=== PATIENT | male | born 2000 | race Caucasian/White ===

== ENCOUNTER 2020-11-24 14:38 | Inpatient (IN) | payer BC, SELFPAY ==
[2020-11-24 14:40] VITALS: BP 142/95; PULSE 78; RESP 16; TEMP 36.7; O2SAT 100; BMI 21.1
[2020-11-24 15:01] VITALS: RESP 18
--- NOTE | 2020-11-24 15:10 | ED_ITS ---
HPI - Psych General: Chief Complaint: Psychiatric Symptoms Stated Complaint: 96 Time Seen by Provider: 11/24/20 14:53 Source: patient and police Mode of arrival: other (police) Limitations: no limitations History of Present Illness: HPI Narrative: Patient is a 20-year-old male who was brought in by law enforcement on a 96-hour hold that has been court ordered for suicidal ideation. The patient denies any complaints at this time, he states he does not know why he was brought here. He said he was suicidal about a week ago but is no longer suicidal. According to the affidavit/96 hour order the patient is [id number], and suicidal and is a risk to himself and others. Review of Systems General: Reports: 10 or more systems reviewed and unremarkable except in HPI and below Const: Denies: fever(s), chills or body aches Eyes: Denies: change in vision or blurry vision ENMT: Denies: throat pain, enlarged tonsils, odynophagia, hoarseness, mouth pain or swelling of lips/tongue Card: Denies: palpitations, irregular heart rhythm, edema or swelling of feet/ankles Resp: Denies: dyspnea, productive cough or non-productive cough GI: Denies: abdominal pain, nausea or vomiting : Denies: flank pain, dysuria, urinary frequency, urinary urgency or urinary hesitancy Musc: Denies: neck pain, back pain or extremity swelling Skin/Breast: Denies: rash, pruritus or erythema Neuro: Denies: headache(s), numbness in extremities or weakness in extremities Endo: Denies: polyuria, polydipsia or tired all the time Physical Exam Const: COMMON NORMALS: no acute distress, average body habitus, patient oriented x3, no limitations, healthy appearing, alert and well nourished HENMT: COMMON NORMALS: normocephalic, atraumatic and moist oral mucous membranes HEAD & SCALP: normocephalic and atraumatic Neck/C-Spine: COMMON NORMALS: no meningeal signs and no JVD Resp: COMMON NORMALS: normal respiratory effort, No retractions, No use of accessory muscles, clear to auscultation bilaterally and percussion normal AUSCULTATION: clear to auscultation bilaterally PERCUSSION: percussion normal Cardio: COMMON NORMALS: no JVD, regular rate, regular rhythm, S1 normal heart sound present, S2 normal heart sound present, No gallops present (Cardio), No clicks present (Cardio), No murmurs present (Cardio), No rub (Cardio) and Peripheral pulses 2+ throughout RATE: regular rate RHYTHM: regular rhythm HEART SOUNDS: S1 normal heart sound present and S2 normal heart sound present PERIPHERAL PULSES: Peripheral pulses 2+ throughout GI: COMMON NORMALS: Normal to inspection, nondistended, normoactive bowel sounds present, Soft to palpation, non-tender, No hepatosplenomegaly present, no masses and no bruits PALPATION: Yes Soft to palpation and Yes No hepatosplenomegaly present : COMMON NORMALS: Yes no CVA tenderness BLADDER/KIDNEY EXAM: Yes no CVA tenderness Back/Pelvis: COMMON NORMALS: no CVA tenderness Extremity: COMMON NORMALS: normal to inspection, full ROM, capillary refill normal, no calf tenderness and no pedal edema Neuro: COMMON NORMALS: patient oriented x3 SENSORIUM/ORIENTATION: Yes alert MENINGEAL SIGNS: Yes no meningeal signs Psych: COMMON NORMALS: mental status grossly normal, Normal thought process present, cooperative, normal affect, speech normal, denies hallucinations, denies homicidal ideation and denies suicidal ideation SPEECH: Yes normal speech THOUGHT PROCESS: Normal thought process present Skin: COMMON NORMALS: no rashes or lesions noted, no wounds, turgor normal, no jaundice, no petechiae and no mottling GENERAL SKIN EXAM: no rashes or lesions noted and turgor normal MDM - Psych MDM Narrative: Medical decision making narrative: 20-year-old male patient who was brought in from detention on a 96-hour hold. He apparently has been having behavioral issues including suicidal ideation. He denies suicidal ideation here in the emergency department, and evaluation here is unremarkable. He is medic ally cleared and is admitted to the neuropsychiatric unit since he already has a 96-hour hold order from the court. Medical Records: Attestation: I reviewed the patient's medical records. Lab Data: Attestation: I reviewed the patient's lab results. Labs: Lab Results 11/24/20 11/24/20 11/24/20 Range/Units 14:55 14:55 15:10 WBC 5.7 (4.0-10.0) 10^3/ uL RBC 5.16 (4.1-5.3) 10^6/u L Hgb 15.0 (11.7-16.6) g/dL Hct 44.8 (42.0-52.0) % MCV 86.8 (80-94) fL MCH 29.1 (28.0-34.0) pg MCHC 33.5 (30.0-36.0) g/dL RDW 11.7 L (12.1-15.1) % Plt Count 249 (130-400) 10^3/c mm MPV 8.7 (7.4-10.4) fL Neut % (Auto) 67.6 % Lymph % (Auto) 25.5 % [place] % (Auto) 4.4 % Eos % (Auto) 1.4 % Baso % (Auto) 0.7 % Neut # (Auto) 3.85 (1.8-7.7) 10^3/u L Lymph # (Auto) 1.5 (0.8-4.8) 10^3/u L [place] # (Auto) 0.3 (0.2-0.9) 10^3/u L Eos # (Auto) 0.1 (0.0-0.8) 10^3/u L Baso # (Auto) 0.0 (0.0-0.1) 10^3/u L Nucleated RBC % (a uto) 0 % Nucleated RBCs # 0.0 /100WBC Sodium (136-145) mmol/L Potassium (3.5-5.1) mmol/L Chloride (98-107) mmol/L Carbon Dioxide (22-29) mmol/L Anion Gap (5-19) BUN (6-20) mg/dL Creatinine (0.7-1.2) mg/dL GFR Calculation (90-130) mL/min Glucose (65-115) mg/dL Calculated Osmolal ity (285-295) mOsm/k g Calcium (8.5-10.5) mg/dL Total Bilirubin (0.15-1.2) mg/dL AST (0-40) U/L ALT (0-41) U/L Alkaline Phosphata se (40-130) IU/L Total Protein (6.6-8.7) g/dL Albumin (3.5-5.2) g/dL Globulin (1.3-4.6) g/dL Urine Color Yellow (Yellow) Urine Appearance Hazy A (CLEAR) Urine pH 8 H (5-7) Ur Specific Gravit y 1.015 (1.005-1.030) Urine Protein Neg (Negative) Urine Glucose (UA) Norm (Normal) Urine Ketones Negative (Negative) Urine Blood Neg (Negative) Urine Nitrate Negative (Negative) Urine Bilirubin Neg (Negative) Prot Sulfosalicyli c Acd Negative (Negative) Urine Urobilinogen Norm (Negative) mg/dL Ur Leukocyte Henrietta ase Negative (Negative) Urine RBC 0-4 H (0-2) /hpf Urine WBC None (0-5) /hpf Ur Squamous Epith Cells 0-4 H (0-5) /hpf Amorphous Sediment 4+ /hpf Urine Bacteria 1+ H (NONE) /hpf Salicylates (3-10) mg/dL Urine Opiates Scre en Negative (Negative) ng/mL Acetaminophen (10-30) ug/mL Ur Barbiturates Sc reen Negative (Negative) ng/mL Ur Phencyclidine S crn Negative (Negative) ng/mL Ur Amphetamines Sc reen Negative (Negative) ng/mL U Benzodiazepines Scrn Negative (Negative) ng/mL Urine Cocaine Scre en Negative (Negative) ng/mL U Marijuana (THC) Screen Positive H (Negative) ng/mL Ethyl Alcohol (0-10) mg/dL 11/24/20 Range/Units 15:10 WBC (4.0-10.0) 10^3/ uL RBC (4.1-5.3) 10^6/u L Hgb (11.7-16.6) g/dL Hct (42.0-52.0) % MCV (80-94) fL MCH (28.0-34.0) pg MCHC (30.0-36.0) g/dL RDW (12.1-15.1) % Plt Count (130-400) 10^3/c mm MPV (7.4-10.4) fL Neut % (Auto) % Lymph % (Auto) % [place] % (Auto) % Eos % (Auto) % Baso % (Auto) % Neut # (Auto) (1.8-7.7) 10^3/u L Lymph # (Auto) (0.8-4.8) 10^3/u L [place] # (Auto) (0.2-0.9) 10^3/u L Eos # (Auto) (0.0-0.8) 10^3/u L Baso # (Auto) (0.0-0.1) 10^3/u L Nucleated RBC % (a uto) % Nucleated RBCs # /100WBC Sodium 138 (136-145) mmol/L Potassium 4.2 (3.5-5.1) mmol/L Chloride 101 (98-107) mmol/L Carbon Dioxide 30 H (22-29) mmol/L Anion Gap 11.2 (5-19) BUN 11 (6-20) mg/dL Creatinine 1.0 (0.7-1.2) mg/dL GFR Calculation 94.3 (90-130) mL/min Glucose 99 (65-115) mg/dL Calculated Osmolal ity 285 (285-295) mOsm/k g Calcium 9.6 (8.5-10.5) mg/dL Total Bilirubin 0.2 (0.15-1.2) mg/dL AST 14 (0-40) U/L ALT 16 (0-41) U/L Alkaline Phosphata se 82 (40-130) IU/L Total Protein 7.2 (6.6-8.7) g/dL Albumin 4.5 (3.5-5.2) g/dL Globulin 2.7 (1.3-4.6) g/dL Urine Color (Yellow) Urine Appearance (CLEAR) Urine pH (5-7) Ur Specific Gravit y (1.005-1.030) Urine Protein (Negative) Urine Glucose (UA) (Normal) Urine Ketones (Negative) Urine Blood (Negative) Urine Nitrate (Negative) Urine Bilirubin (Negative) Prot Sulfosalicyli c Acd (Negative) Urine Urobilinogen (Negative) mg/dL Ur Leukocyte Henrietta ase (Negative) Urine RBC (0-2) /hpf Urine WBC (0-5) /hpf Ur Squamous Epith Cells (0-5) /hpf Amorphous Sediment /hpf Urine Bacteria (NONE) /hpf Salicylates < 0.3 L (3-10) mg/dL Urine Opiates Scre en (Negative) ng/mL Acetaminophen < 5.0 L (10-30) ug/mL Ur Barbiturates Sc reen (Negative) ng/mL Ur Phencyclidine S crn (Negative) ng/mL Ur Amphetamines Sc reen (Negative) ng/mL U Benzodiazepines Scrn (Negative) ng/mL Urine Cocaine Scre en (Negative) ng/mL U Marijuana (THC) Screen (Negative) ng/mL Ethyl Alcohol < 10 (0-10) mg/dL Discharge Plan Discharge Patient Disposition: Admitted As Inpatient Admit Provider: Cha Mike Clinical Impression: Suicidal ideation Condition: Stable Coding Level of Care Code ED Manager Of Selection And Assessment for Cait Damon
[2020-11-24 15:16] LABS: Basophils % 0.7 %; Eosinophils # 0.1 10^3/uL (0.0-0.8); Eosinophils % 1.4 %; Hematocrit 44.8 % (42.0-52.0); Lymphocytes # 1.5 10^3/uL (0.8-4.8); Lymphocytes % 25.5 %; Mean Corpuscular HGB Conc 33.5 g/dL (30.0-36.0); Mean Corpuscular Hemoglobin 29.1 pg (28.0-34.0); Mean Corpuscular Volume 86.8 fL (80-94); Mean Platelet Volume 8.7 fL (7.4-10.4); Monocytes # 0.3 10^3/uL (0.2-0.9); Monocytes % 4.4 %; Neutrophils # 3.85 10^3/uL (1.8-7.7); Neutrophils % 67.6 %; Nucleated Red Blood Cells % 0 %; Platelet Count 249 10^3/cmm (130-400); Red Blood Count 5.16 10^6/uL (4.1-5.3); Red Cell Distribution Width 11.7 % (12.1-15.1); White Blood Count 5.7 10^3/uL (4.0-10.0)
[2020-11-24 15:38] LABS: Add Urine Microscopic? YES; Bilirubin Urine Neg (Negative); Blood Urine Neg (Negative); Glucose Urine UA Norm (Normal); Ketones Urine Negative (Negative); Leukocyte Esterase Urine Negative (Negative); Nitrate Urine Negative (Negative); Protein Urine Neg (Negative); Specific Gravity, Urine 1.015 (1.005-1.030); Sulfosalicylic Acid Urine Negative (Negative); Urine Appearance Hazy (CLEAR); Urine Color Yellow (Yellow); Urobilinogen Urine Norm (Negative); pH Urine 8 (5-7)
[2020-11-24 15:43] LABS: Alanine Aminotransferase 16 U/L (0-41); Albumin Level 4.5 g/dL (3.5-5.2); Alkaline Phosphatase 82 IU/L (40-130); Anion Gap 11.2 (5-19); Aspartate Amino Transferase 14 U/L (0-40); Blood Urea Nitrogen 11 mg/dL (6-20); Calcium 9.6 mg/dL (8.5-10.5); Carbon Dioxide 30 mmol/L (22-29); Chloride 101 mmol/L (98-107); Globulin 2.7 g/dL (1.3-4.6); Glomerular Filtration Rate 94.3 mL/min (90-130); Glucose 99 mg/dL (65-115); Osmolality Calculated 285 mOsm/kg (285-295); Potassium 4.2 mmol/L (3.5-5.1); Sodium 138 mmol/L (136-145); Total Bilirubin 0.2 mg/dL (0.15-1.2); Total Protein 7.2 g/dL (6.6-8.7)
[2020-11-24 15:47] LABS: Add Urine Culture? No; Amorphous Sediment Urine 4+ /hpf; Bacteria Urine 1+ /hpf; RBC Urine 0-4 /hpf (0-2); Squamous Epithelial Cell Urine 0-4 /hpf (0-5)
[2020-11-24 15:49] LABS: Acetaminophen < 5.0 ug/mL (10-30); Alcohol Level < 10 mg/dL (0-10); Salicylate < 0.3 mg/dL (3-10)
[2020-11-24 16:11] LABS: Amphetamines Screen Urine Negative (Negative); Barbiturates Screen Urine Negative (Negative); Benzodiazepines Screen Urine Negative (Negative); Cocaine Screen Urine Negative (Negative); Opiate Screen Urine Negative (Negative); PCP Screen Urine Negative (Negative); THC Screen Urine Positive (Negative)
[2020-11-24 17:11] VITALS: BP 132/88; PULSE 78; RESP 18; O2SAT 100
[2020-11-24 17:46] VITALS: BP 132/88; PULSE 78; RESP 18; O2SAT 100
[2020-11-24 18:05] VITALS: BP 135/87; PULSE 80; RESP 18; TEMP 37.1; O2SAT 99
[2020-11-24] MEDS: nicotine 2 mg Gum BUCCAL (19:22)
[2020-11-24 19:56] VITALS: BP 141/84; PULSE 96; RESP 18; TEMP 36.8; O2SAT 96
[2020-11-25] MEDS: hyDROXYzine 25 mg Capsule 50 MG PO (00:36)
[2020-11-25] MEDS: trazodone 50 mg Tablet PO (00:37)
[2020-11-25 06:00] VITALS: BP 81/41; PULSE 52; RESP 15; TEMP 36.4; O2SAT 98
--- NOTE | 2020-11-25 12:52 | P.HP_ITS ---
Providers/Chief Complaint Admitting Physician: Cha Mike DO Chief Complaint: 96 HPI NPU History of Present Illness Cresencio Barlow is a 20 year old male presented to the emergency department by police after being released from [facility], per chart review, patient had been banging his head against the wall making threats of harming himself although at the time of emergency department evaluation was denying any suicidal ideation. Patient is currently denying any suicidal ideation and denying any psychiatric symptoms although he sits in front of the interviewer smiling inappropriately and occasionally laughing inappropriately and suddenly stopped answering questions when asked about past psychiatric treatments stating, I know which are trying to do to me. Patient is a difficult historian secondary to not providing any additional information after asked about past treatment for psych issues. Patient currently denies any psychotic symptoms, denies any auditory or visual destinations, denies any delusions. Patient states that he is happy, and denies any current depressive symptoms, denies any past or recent sustained low mood states. Denies any periods of irritability or anger. Denies any past or recent manic or hypomanic episodes. COLLATERAL: Jeannine Barlow, patient's mother, states that the patient lives with her and her on occasion but often times will set off on foot, sometimes without close erratically. She also reports that he will intermittently demonstrate bizarre behavior and sometimes go off the handle and destroy things in the house without provocation. She states that she is never seen him appear to be responding to internal stimuli but does report that he occasionally acts in a bizarre behavior that seems like something is going on inside of his head. She reports that sometimes that he has burst out into tears when he is drawn something on a piece of paper stating that he does not understand why no one understands that he is just drawn something that has solved all of the world's problems. He has also reportedly gone out in the middle of the night and chopped down their mailbox states stating that it serves no purpose. Patient's mother reports ongoing concerns about acute safety given that he had stated before [place] that he did not plan on being alive past [place]. Review of Systems General: Reports: 10 or more systems reviewed and unremarkable except in HPI and below Meds NPU Home Medications Medication Instructions Recorded Confirmed Last Taken Type No Known Home Medications 11/24/20 11/24/20 Unknown History Allergies Allergy/AdvReac Type Severity Reaction Status Date / Time No Known Allergies Allergy Verified 11/24/20 14:44 [facility] NPU Other Psychiatric History: Other Psychiatric History: Patient refused to provide information although patient's mother states that he had ended up at a psychiatric facility around the age of 14 or 15 when he ran away from home and was treated there for several days but never continued the medication and reports that in the past when he has been prescribed medication he has either abused it or sold it to other people. Patient's mother denies denies any known history of suicide attempt Mental Status Exam MSE Comments: Patient responds and somewhat bizarre manner to request for interview, smiles inappropriately and occasionally laughs and appropriately during interview stating that nothing is wrong, good eye contact although averts gaze and no longer looks at interviewer after he is asked about past psychiatric treatment Psychomotor activity is neither increased nor decreased, no agitation Speech is normal rate and volume, spontaneous, clear articulation, not pressured I feel great, full range, laughs and smiles inappropriately at times during the interview, not labile Alert and oriented to person, place, time Intellectual functioning appears to be average based on vocabulary, interview Memory and concentration appear to be fair at best based on interview Thought process, occasional pauses that appear to be thought blocking, linear but brief, no flight of ideas, no looseness of associations Thought content, no stated delusions, does not appear to be attending to any internal stimuli, no suicidal or homicidal ideation Insight and judgment appear to be limited based on patient's lack of awareness of events leading to his hospitalization Vitals/I&O/Wt Last Vital Signs Temp 97.6 F 11/25/20 06:00 Pulse 52 L 11/25/20 06:00 Resp 15 11/25/20 06:00 BP 81/41 11/25/20 06:00 Pulse Ox 98 11/25/20 06:00 Weight last 48 hrs Weight 72.575 kg Physical Exam Narrative: EXAM NARRATIVE: Emergency department physical examination was reviewed as part of this evaluation. Data NPU : 11/24/20 15:10 11/24/20 15:10 A&P Assessment and plan (1) Suicidal ideation: Status: Acute (2) Psychotic disorder: Status: Acute Additional A&P Information Patient presenting under unusual circumstances on 96-hour hold initiated by parents who are concerned about their son's safety with longstanding erratic, bizarre behavior with no psychotropic medication, recently taken to [facility] where he had been banging his head against the wall threatening suicide. Patient has past history of polysubstance abuse but has also demonstrated over a long period of time bizarre behaviors in the absence of substance use. Patient would benefit from ongoing observation for suicidal ideation and bizarre behavior. INVOLUNTARY, 96-hour hold ADMIT to inpatient psychiatry Continue observation while reassessing for psychiatric medication Continue as needed medication as necessary for any behavioral disturbances not responding to behavioral redirection Encourage patient to participate in unit activities to include group sessions and unit milieu Involuntary Hold Information 96 Hour Hold: 96 Hour Involuntary Admission: Yes 96 Hour Hold Ending Date: 11/30/20 96 Hour Hold Ending Time: 14:38 Attestations NPU Medical Necessity Statement*: Patient requires psychiatric hospitalization for observation for ongoing bizarre behavior, concerns about recent suicidal statements and behaviors as well as coordinating for safe discharge including post discharge psychiatric care. Anticipate hospital stay to exceed 2 midnights Time Spent in Patient Care: Greater than 35 minutes (>than 50% of time spent in counselling and/or direct pt care on unit) . Coding Level of Care Code Acute Candle Extrusion Machine Operator for Cait Damon Diagnoses Suicidal ideation R45.851 Psychotic disorder F29
[2020-11-25 14:00] VITALS: BP 118/71; PULSE 83; RESP 18; TEMP 35.9; O2SAT 96
--- NOTE | 2020-11-25 14:39 | PC.NURSE ---
contact info Margie ([facility] – [place]) [phone]
[2020-11-25] MEDS: nicotine 2 mg Gum BUCCAL (21:03)
[2020-11-25 21:04] VITALS: BP 110/63; PULSE 86; RESP 18; TEMP 36.8; O2SAT 100
--- NOTE | 2020-11-26 00:58 | PC.NURSE ---
PM assessment Pt denies AH/VH, Denies SI/HI, Denies pain, pt is watching television in the dayroom. Pt heart/lung sounds are WNL, v/s are normal. Pt is bored, often skipping up and down the hallway, pt acts much younger than his age, seems to be full of energy, pt is cooperative with staff. 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 Pt refuses to take meds, states I don't like them to take away my energy, I have an 8-pack, see? he said as he lifted his shirt
[2020-11-26 06:00] VITALS: BP 103/57; PULSE 71; RESP 18; TEMP 36.8; O2SAT 100
[2020-11-26 14:00] VITALS: BP 127/78; PULSE 85; RESP 20; TEMP 36.9; O2SAT 98
--- NOTE | 2020-11-26 16:57 | PM.NPN ---
Subjective NPU Subjective: Interval history: Cresencio presents today clearly psychotic and having inappropriate laughter and seeming to suggest that he has special abilities. He discussed having an IQ of 150 and knowing what psychiatrist to do. Speaking with odd expressions about the here and now. We discussed his previous medications and he rattled off multiple medications for ADHD and then seem to say he had been on medication for psychosis but when really pressed it seemed unlikely that he was. He reported that he was on all these medications by age 15. But again seem unlikely. We discussed his thought disorder which she denied to be true and we discussed having him being on a 96-hour hold that would likely turn into a 21-day hold if he is going to be resistant to any medication. Mental Status Exam MSE Comments: This is a slender white male, tall, thin in hospital scrubs with adequate grooming and eye contact. No abnormal movements except for psychomotor retardation. Semicooperative with exam in no acute distress. Speech was decreased rate and volume with some odd moments of mute responses with odd head shakes and eye darting to specific places with weird smiles. Mood described as fine affect odd. Thought process disorganized. Thought content: Patient denied suicidal or homicidal ideation, there were no delusions reported but clear paranoid and grandiose delusion allergy exists, he denied auditory or visual hallucinations but at times did appear to be having some internal experiences. Attention and concentration were limited and memory was unreliable but none were formally tested. He was oriented times person and place. Insight and judgment are impaired, impulse control is limited. Vitals/I&O/Wt Last Vital Signs Temp 98.3 F 11/26/20 21:24 Pulse 78 11/26/20 21:24 Resp 17 11/26/20 21:24 BP 122/56 11/26/20 21:24 Pulse Ox 98 11/26/20 21:24 Data NPU : 11/24/20 15:10 11/24/20 15:10 A&P Additional A&P Information (1) Suicidal ideation: (2) Psychotic disorder: Additional A&P Information Patient presenting under unusual circumstances on 96-hour hold initiated by parents who are concerned about their son's safety with longstanding erratic, bizarre behavior with no psychotropic medication, recently taken to residential where he had been banging his head against the wall threatening suicide. Patient has past history of polysubstance abuse but has also demonstrated over a long period of time bizarre behaviors in the absence of substance use. Patient would benefit from ongoing observation for suicidal ideation and bizarre behavior. 1. Continue current medication. We will continue to offer an antipsychotic for his clear thought disorder. 2. Continue every 15 minute checks for safety. 3. Encourage individual, group and milieu therapies. 4. Encourage sober living treatment after discharge at the highest level of care to which he is willing to commit. Involuntary Hold Information 96 Hour Hold: 96 Hour Involuntary Admission: Yes 96 Hour Hold Ending Date: 11/30/20 96 Hour Hold Ending Time: 14:38 Attestations NPU Medical Necessity Statement*: Inpatient hospitalization is medically necessary and the clinically appropriate intervention at this time. We will monitor and continue to offer medication interventions as appears quite appropriate. Likely length of stay 4 to 6 days. Likely longer if he is unwilling to explore pharmacologic interventions. Coding Level of Care Code Acute Police Booking Officer for Cait Damon
[2020-11-26] MEDS: nicotine 2 mg Gum BUCCAL ×2 (20:24→22:41)
[2020-11-26] MEDS: hyDROXYzine 25 mg Capsule 50 MG PO (20:32)
[2020-11-26] MEDS: trazodone 50 mg Tablet PO (20:37)
[2020-11-26 21:24] VITALS: BP 122/56; PULSE 78; RESP 17; TEMP 36.8; O2SAT 98
[2020-11-27] MEDS: trazodone 50 mg Tablet PO ×2 (01:52→23:05)
[2020-11-27 06:00] VITALS: BP 101/56; PULSE 56; RESP 17; TEMP 36.5; O2SAT 96
[2020-11-27] MEDS: neomycin-poly-bacitracin oint 28 gm 1 APPLIC TOPICAL ×2 (07:55→16:43)
[2020-11-27] MEDS: nicotine 2 mg Gum BUCCAL ×2 (12:50→18:35)
[2020-11-27 14:00] VITALS: BP 121/77; PULSE 80; RESP 20; TEMP 37.1; O2SAT 98
--- NOTE | 2020-11-27 14:07 | PM.NPN ---
Subjective NPU Subjective: Interval history: Cresencio presents today continuing to have obvious thought disorder and some grandiose approaches. One point identified walking down the hallway and doing a front roll and just continuing down the hallway. We continued our conversation about him not believing he needs medication and me identify for him that if he does not pursue medication interventions that he will likely be here a considerable period of time. He then said that if this insurance underwriter sales thinks that he needs medication that he would give it a try. We discussed the risk benefits and alternatives of initiating Abilify and he appeared to understand and agreed to proceed as is documented in this note. Mental Status Exam MSE Comments: This is a slender white male, tall, thin in hospital scrubs with adequate grooming and eye contact. No abnormal movements except for psychomotor retardation. More cooperative with exam in no acute distress. Speech was decreased rate and volume with some odd moments of mute responses with odd head shakes and eye darting to specific places with weird smiles. Mood described as good affect odd. Thought process disorganized. Thought content: Patient denied suicidal or homicidal ideation, there were no delusions reported but clear paranoid and grandiose delusion allergy exists, he denied auditory or visual hallucinations but at times did appear to be having some internal experiences. Attention and concentration were limited and memory was unreliable but none were formally tested. He was alert and oriented times person and place. Insight and judgment are impaired, impulse control is limited. Vitals/I&O/Wt Last Vital Signs Temp 97.7 F 11/27/20 21:06 Pulse 81 11/27/20 21:06 Resp 19 H 11/27/20 21:06 BP 125/72 11/27/20 21:06 Pulse Ox 99 11/27/20 21:06 Data NPU : 11/24/20 15:10 11/24/20 15:10 A&P Additional A&P Information (1) Suicidal ideation: (2) Psychotic disorder: Additional A&P Information Patient presenting under unusual circumstances on 96-hour hold initiated by parents who are concerned about their son's safety with longstanding erratic, bizarre behavior with no psychotropic medication, recently taken to intermediate where he had been banging his head against the wall threatening suicide. Patient has past history of polysubstance abuse but has also demonstrated over a long period of time bizarre behaviors in the absence of substance use. Patient would benefit from ongoing observation for suicidal ideation and bizarre behavior. 1. Continue current medication. Initiate Abilify 10 mg p.o. every morning with a plan to be open to the possibility of the Abilify Maintena injection. 2. Continue every 15 minute checks for safety. 3. Encourage individual, group and milieu therapies. 4. Encourage sober living treatment after discharge at the highest level of care to which he is willing to commit. Involuntary Hold Information 96 Hour Hold: 96 Hour Involuntary Admission: Yes 96 Hour Hold Ending Date: 11/30/20 96 Hour Hold Ending Time: 14:38 Attestations NPU Medical Necessity Statement*: Inpatient hospitalization is medically necessary and the clinically appropriate intervention at this time. We will monitor and continue to offer medication interventions as appears quite appropriate. Likely length of stay 4 to 6 days. His current trajectory still likely will include a filing of a 21-day hold unless he has very dramatic improvement. Coding Level of Care Code Acute Engine Research Engineer for Cait Damon
[2020-11-27] MEDS: ARIPiprazole 10 mg Tablet PO (16:42)
[2020-11-27 21:06] VITALS: BP 125/72; PULSE 81; RESP 19; TEMP 36.5; O2SAT 99
[2020-11-27] MEDS: hyDROXYzine 25 mg Capsule 50 MG PO (23:04)
[2020-11-28 06:00] VITALS: BP 106/57; PULSE 70; RESP 15; TEMP 36.7; O2SAT 96
[2020-11-28] MEDS: ARIPiprazole 10 mg Tablet PO (08:28)
[2020-11-28 14:00] VITALS: BP 136/77; PULSE 76; RESP 17; TEMP 36.9; O2SAT 96
[2020-11-28] MEDS: nicotine 2 mg Gum BUCCAL ×2 (15:19→17:25)
--- NOTE | 2020-11-28 20:09 | PM.NPN ---
Subjective NPU Subjective: Interval history: Cresencio presents today doing a little better by his report. He now suggest that he has had Abilify in the past for certain, but reports that in the past he did not remember it helping him and now he feels like he may be feeling a little better. He reports that he slept a little better and he denied any side effects to the medication. Staff reports of having to stop him from doing gymnastics and other activities down the hallway had occurred. However he has not had any reports like that in the last 12 hours or so. Mental Status Exam MSE Comments: This is a slender white male, tall, thin in hospital scrubs with adequate grooming and eye contact. No abnormal movements except for psychomotor retardation. More cooperative with exam in no acute distress. Speech was decreased rate and volume. Mood described as a little better affect less odd. Thought process disorganized, but seeming to have some improvement but he was less verbal. Thought content: Patient denied suicidal or homicidal ideation, there were no delusions reported, no clear paranoid and grandiose delusionality noted, he denied auditory or visual hallucinations. Attention and concentration were improving and memory was unreliable but none were formally tested. He was alert and oriented times person and place. Insight and judgment are impaired, but improving impulse control is limited. Vitals/I&O/Wt Last Vital Signs Temp 98.4 F 11/28/20 14:00 Pulse 76 11/28/20 14:00 Resp 17 11/28/20 14:00 BP 136/77 11/28/20 14:00 Pulse Ox 96 11/28/20 14:00 Data NPU : 11/24/20 15:10 11/24/20 15:10 A&P Additional A&P Information (1) Suicidal ideation: (2) Psychotic disorder: Additional A&P Information Patient presenting under unusual circumstances on 96-hour hold initiated by parents who are concerned about their son's safety with longstanding erratic, bizarre behavior with no psychotropic medication, recently taken to [facility] where he had been banging his head against the wall threatening suicide. Patient has past history of polysubstance abuse but has also demonstrated over a long period of time bizarre behaviors in the absence of substance use. Patient would benefit from ongoing observation for suicidal ideation and bizarre behavior. 1. Continue current medication. Initiate Abilify 10 mg p.o. every morning with a plan to be open to the possibility of the Abilify Maintena injection. 2. Continue every 15 minute checks for safety. 3. Encourage individual, group and milieu therapies. 4. Encourage sober living treatment after discharge at the highest level of care to which he is willing to commit. Involuntary Hold Information 96 Hour Hold: 96 Hour Involuntary Admission: Yes 96 Hour Hold Ending Date: 11/30/20 96 Hour Hold Ending Time: 14:38 Attestations NPU Medical Necessity Statement*: Inpatient hospitalization is medically necessary and the clinically appropriate intervention at this time. We will monitor and continue to offer medication interventions as appears quite appropriate. Likely length of stay 4 to 6 days. His current trajectory still likely will include a filing of a 21-day hold unless he has very dramatic improvement. Coding Level of Care Code Acute Criminal Psychologist for Cait Damon
[2020-11-28] MEDS: hyDROXYzine 25 mg Capsule 50 MG PO (20:55)
[2020-11-28 22:00] VITALS: BP 142/71; PULSE 110; RESP 19; TEMP 36.6; O2SAT 95
[2020-11-29 04:27] VITALS: BP 124/72; PULSE 75; RESP 18; TEMP 36.6; O2SAT 97
[2020-11-29] MEDS: ARIPiprazole 10 mg Tablet PO (09:29)
[2020-11-29] MEDS: neomycin-poly-bacitracin oint 28 gm 1 APPLIC TOPICAL (09:31)
[2020-11-29 14:00] VITALS: BP 127/78; PULSE 104; RESP 17; TEMP 36.7; O2SAT 99
[2020-11-29] MEDS: nicotine 2 mg Gum BUCCAL (17:07)
--- NOTE | 2020-11-29 19:33 | P.PN_ITS ---
Subjective NPU Subjective: Interval history: Cresencio presents today reporting that he is feeling a lot better on the medication. We discussed the importance of him continuing the medication to get a full measure of improvement. We discussed the injectable version of the medication any continued to have an open mind about that possibility. We discussed him reaching out to his parents with whom he lives in hopes of him giving us some sense of his level of improvement from their perspective. Considering 21-day hold but he also seems open to negotiating staying for some additional time. He denies any side effects from the medication. Reports he is continuing to sleep better. Mental Status Exam MSE Comments: This is a slender white male, tall, thin in hospital scrubs with adequate grooming and eye contact. No abnormal movements except for mild psychomotor retardation. More cooperative with exam in no acute distress. Speech was more normal rate and volume. Mood described as feeling pretty good, affect less odd. Thought process more organized. Thought content: Patient denied suicidal or homicidal ideation, there were no delusions reported, no clear paranoid and grandiose delusionality noted, he denied auditory or visual hallucinations. Attention and concentration were improving and memory was more reliable but none were formally tested. He was alert and oriented x3. Insight and judgment are improving, impulse control is limited at 1 point after his session he was noted walking down the hallway but purposefully stepping in specific blocks with long strides as he went to the day room. Vitals/I&O/Wt Last Vital Signs Temp 98.0 F 11/29/20 14:00 Pulse 104 H 11/29/20 14:00 Resp 17 11/29/20 14:00 BP 127/78 11/29/20 14:00 Pulse Ox 99 11/29/20 14:00 Weight last 48 hrs Weight 81.647 kg Data NPU : 11/24/20 15:10 11/24/20 15:10 A&P Additional A&P Information (1) Suicidal ideation: (2) Psychotic disorder: Additional A&P Information Patient presenting under unusual circumstances on 96-hour hold initiated by parents who are concerned about their son's safety with longstanding erratic, bizarre behavior with no psychotropic medication, recently taken to residential where he had been banging his head against the wall threatening suicide. Patient has past history of polysubstance abuse but has also demonstrated over a long period of time bizarre behaviors in the absence of substance use. Patient would benefit from ongoing observation for suicidal ideation and bizarre behavior. 1. Continue current medication. We will wait to see if a increase to Abilify 15 mg would be necessary. Will explore whether he will accept the injection. 2. Continue every 15 minute checks for safety. 3. Encourage individual, group and milieu therapies. 4. Encourage sober living treatment after discharge at the highest level of care to which he is willing to commit. 5. We will work with treatment team and parents to get a sense of where he is in relation to baseline and will likely file 21-day hold if cannot negotiate a few more days given his level of disorganization off the medication. Involuntary Hold Information 96 Hour Hold: 96 Hour Involuntary Admission: Yes 96 Hour Hold Ending Date: 11/30/20 96 Hour Hold Ending Time: 14:38 Attestations NPU Medical Necessity Statement*: Inpatient hospitalization is medically necessary and the clinically appropriate intervention at this time. We will monitor medications and make changes as indicated. Likely length of stay 3-5 days. His current trajectory still likely will include a filing of a 21-day hold unless he has very dramatic improvement. Coding Level of Care Code Acute Group Insurance Special Agent for Cait Damon
[2020-11-29 19:53] VITALS: BP 127/67; PULSE 89; RESP 18; TEMP 36.9; O2SAT 98
[2020-11-29] MEDS: trazodone 50 mg Tablet PO (22:56)
[2020-11-30 06:00] VITALS: BP 99/34; PULSE 60; RESP 16; TEMP 36.5; O2SAT 96
[2020-11-30] MEDS: ARIPiprazole 10 mg Tablet PO (08:08)
--- NOTE | 2020-11-30 10:49 | PC.NURSE ---
Med Pass: While teaching patient about Abilify he states he did not want it but he doesn't need it and I'm only taking it while I'm here . I asked why he doesn't feel he needs it and he states that cause I'm fine without anything . Patient took medication as ordered. TAMEKA, HELEN
[2020-11-30 14:00] VITALS: BP 125/86; PULSE 83; RESP 18; TEMP 36; O2SAT 99
--- NOTE | 2020-11-30 17:16 | P.PN_ITS ---
Subjective NPU Subjective: Interval history: Cresencio presented today reporting that he was doing okay but clearly was seeming less well and this was noted by staff also. He reports that he does not feel he need medication and had stated a group he did not need medication and begun suggested others did not be medication either. Reported me that he took the medication the first day and made him a little anxious and so reports some kicking or spitting out of heart the medication last day or 2. With a long discussion about the improvement that was seen clearly when he took the medication and that is behavior has regressed. He reported that he is an adult and had the right to refuse indication. I concurred with his assessment but also shared with him that the quickest and clear his path of discharge would be adherence to medication. We discussed the 21 day hold that was filed, and explained that process. Mental Status Exam MSE Comments: This is a slender white male, tall, thin in hospital scrubs with adequate grooming and eye contact. He is having that almost trying to contain laughter look on his face. No abnormal movements except for mild psychomotor agitation. Mostly cooperative with exam in no acute distress. Speech was normal rate and volume. Mood described as feeling really good, affect odd. Thought process more disorganized. Thought content: Patient denied suicidal or homicidal ideation, there were no delusions reported, more paranoid and grandiose delusionality noted, he denied auditory or visual hallucinations. Attention and concentration were intact and memory was reliable but none were formally tested. He was alert and oriented x3. Insight and judgment are impaired, impulse control is limited.. Vitals/I&O/Wt Last Vital Signs Temp 96.8 F L 11/30/20 14:00 Pulse 83 11/30/20 14:00 Resp 18 11/30/20 14:00 BP 125/86 11/30/20 14:00 Pulse Ox 99 11/30/20 14:00 Weight last 48 hrs Weight 81.647 kg Data NPU : 11/24/20 15:10 11/24/20 15:10 A&P Additional A&P Information (1) Suicidal ideation: (2) Psychotic disorder: Additional A&P Information Patient presenting under unusual circumstances on 96-hour hold initiated by parents who are concerned about their son's safety with longstanding erratic, bizarre behavior with no psychotropic medication, recently taken to longterm where he had been banging his head against the wall threatening suicide. Patient has past history of polysubstance abuse but has also demonstrated over a long period of time bizarre behaviors in the absence of substance use. He is presenting with clear psychosis likely schizophrenia versus bipolar disorder which showed almost immediate improvement with initiation of Abilify with regression out that he is possibly cheeking the medication versus needing his dose increased. 1. Continue current medication. We will continue to offer the Abilify but may have to wait until the 21-day hold hearing occurs. 2. Continue every 15 minute checks for safety. 3. Encourage individual, group and milieu therapies. 4. Encourage sober living treatment after discharge at the highest level of care to which he is willing to commit. 5. We will work with family and treatment team to continue to try to wean him over to the idea of the medication and now with his clear positioning on treatment the move to the injection once we are able to restart the medication will be critical. 21-day paperwork was filed. Involuntary Hold Information 96 Hour Hold: 96 Hour Involuntary Admission: Yes 96 Hour Hold Ending Date: 11/30/20 96 Hour Hold Ending Time: 14:38 Attestations NPU Medical Necessity Statement*: Inpatient hospitalization is medically necessary and the clinically appropriate intervention at this time. We will monitor medications and make changes as indicated. [place]. Absent adherence to the medication there is no likely path to him showing improvement and being safe outside of the hospital without the prolonged hold. Coding Level of Care Code Acute Electrician Supervisor Substation for Cait Damon
[2020-11-30] MEDS: trazodone 50 mg Tablet PO (20:09)
[2020-11-30 20:19] VITALS: BP 142/91; PULSE 98; RESP 18; TEMP 36.5; O2SAT 99
[2020-11-30] MEDS: nicotine 2 mg Gum BUCCAL (21:19)
[2020-11-30] MEDS: hyDROXYzine 25 mg Capsule 50 MG PO (22:51)
[2020-12-01 06:00] VITALS: BP 103/61; PULSE 78; RESP 17; TEMP 36.7; O2SAT 95
--- NOTE | 2020-12-01 12:16 | P.PN_ITS ---
Subjective NPU Subjective: Interval history: Cresencio presents today reporting that he understands the legal process that will hurt with his 21-day hold. He was observed this morning doing the strange behaviors that he does walking down the hallway trying to step in the specific blocks which might cause him to zigzag or take really large steps and other unnatural movements through the hallways. When I went to speak to him he was in his room exercising and his facial responses returned to the somewhat internally Eyed stare. We continue to review our concerns that lead to our recommendation that he return to taking the Abilify and also consider the injection for long-term stability and he appeared to understand but refused to take the medication and would like to proceed with court. Mental Status Exam MSE Comments: This is a slender white male, tall, thin in hospital scrubs with adequate grooming and eye contact. He is having that almost trying to contain laughter look on his face. No abnormal movements except for mild psychomotor agitation. Mostly cooperative with exam in no acute distress. Speech was slightly decreased rate and volume. Mood described as really good, affect odd. Thought process mostly organized. Thought content: Patient denied suicidal or homicidal ideation, there were no delusions reported, more paranoid and grandiose delusionality noted, he denied auditory or visual hallucinations. Attention and concentration were intact and memory was reliable but none were formally tested. He was alert and oriented x3. Insight and judgment are impaired, impulse control is limited. Vitals/I&O/Wt Last Vital Signs Temp 98.1 F 12/01/20 06:00 Pulse 78 12/01/20 06:00 Resp 17 12/01/20 06:00 BP 103/61 12/01/20 06:00 Pulse Ox 95 12/01/20 06:00 Data NPU : 11/24/20 15:10 11/24/20 15:10 A&P Additional A&P Information (1) Suicidal ideation: (2) Psychotic disorder: Additional A&P Information Patient presenting under unusual circumstances on 96-hour hold initiated by parents who are concerned about their son's safety with longstanding erratic, bizarre behavior with no psychotropic medication, [facility] he had been banging his head against the wall threatening suicide. Patient has past history of polysubstance abuse but has also demonstrated over a long period of time bizarre behaviors in the absence of substance use. He is presenting with clear psychosis likely schizophrenia versus bipolar disorder which showed almost immediate improvement with initiation of Abilify with regression out that he is possibly cheeking the medication versus needing his dose increased. 1. Continue current medication. We will continue to offer the Abilify, but he continues to refuse. 2. Continue every 15 minute checks for safety. 3. Encourage individual, group and milieu therapies. 4. Encourage sober living treatment after discharge at the highest level of care to which he is willing to commit. 5. We will work with family and treatment team to continue to try to win him over to the idea of the medication and now with his clear positioning on treatment the move to the injection once we are able to restart the medication will be critical. 21-day paperwork was filed. Involuntary Hold Information 96 Hour Hold: 96 Hour Involuntary Admission: Yes 96 Hour Hold Ending Date: 11/30/20 96 Hour Hold Ending Time: 14:38 Attestations NPU Medical Necessity Statement*: Inpatient hospitalization is medically necessary and the clinically appropriate intervention at this time. We will monitor medications and make changes as indicated. Likely length of stay 8 to 10 days. Absent adherence to the medication there is no likely path to him showing improvement and being safe outside of the hospital without the prolonged hold. Coding Level of Care Code Acute Power System Electrical Engineer for Cait Damon
[2020-12-01] MEDS: acetaminophen 325 mg Tablet 650 MG PO (13:21)
[2020-12-01] MEDS: neomycin-poly-bacitracin oint 28 gm 1 APPLIC TOPICAL (13:56)
[2020-12-01 14:00] VITALS: BP 142/88; PULSE 78; RESP 20; TEMP 36.5; O2SAT 96
[2020-12-01] MEDS: nicotine 2 mg Gum BUCCAL ×2 (18:51→21:42)
[2020-12-01 19:41] VITALS: BP 146/92; PULSE 75; RESP 19; TEMP 37.3; O2SAT 99
[2020-12-01] MEDS: hyDROXYzine 25 mg Capsule 50 MG PO (20:20)
[2020-12-02] MEDS: acetaminophen 325 mg Tablet 650 MG PO ×3 (02:41→20:58)
[2020-12-02] MEDS: hyDROXYzine 25 mg Capsule 50 MG PO ×2 (03:05→20:59)
[2020-12-02 05:53] VITALS: BP 135/79; PULSE 72; RESP 14; TEMP 36.9; O2SAT 98
--- NOTE | 2020-12-02 08:51 | PC.NURSE ---
REFUSED SCHEDULED ABILIFY THIS MORNING
[2020-12-02] MEDS: nicotine 2 mg Gum BUCCAL ×3 (10:21→21:00)
--- NOTE | 2020-12-02 13:00 | PM.NPN ---
Subjective NPU Subjective: Interval history: Cresencio presents today prepared to go to court for his 21 they hold hearing. We may not explain to him that I would be recounting the issues that were identified in his stay and the reasons why we believe he needs to stay. He reported his reasons why he fell he should leave including the fact that I was practicing malpractice and he pointed to the fact that the words in the 21 day hold paperwork were difficult to read and that his insurance company would be behind him in this fight. I explained to him that we were trying to work with him here but ultimately we feel a strong need for him to have the Abilify was prescribed and that we would plan on giving him the injection with the course permission. He was clearly getting upset and we left it at the fact that he would have his time in Court here shortly. Mental Status Exam MSE Comments: This is a slender white male, tall, thin in hospital scrubs with adequate grooming and eye contact. He is having that almost trying to contain laughter look on his face. No abnormal movements except for mild psychomotor agitation. Mostly cooperative with exam in mild distress. Speech was slightly decreased rate and volume. Mood described as upset, affect congruent and odd. Thought process mostly organized. Thought content: Patient denied suicidal or homicidal ideation, there were no delusions reported, more paranoid and grandiose delusionality noted, he denied auditory or visual hallucinations. Attention and concentration were intact and memory was reliable but none were formally tested. He was alert and oriented x3. Insight and judgment are impaired, impulse control is limited. Vitals/I&O/Wt Last Vital Signs Temp 98.4 F 12/02/20 05:53 Pulse 72 12/02/20 05:53 Resp 14 12/02/20 05:53 BP 135/79 12/02/20 05:53 Pulse Ox 98 12/02/20 05:53 Data NPU : 11/24/20 15:10 11/24/20 15:10 A&P Additional A&P Information (1) Suicidal ideation: (2) Psychotic disorder: Additional A&P Information Patient presenting under unusual circumstances on 96-hour hold initiated by parents who are concerned about their son's safety with longstanding erratic, bizarre behavior with no psychotropic medication, recently taken to [facility] where he had been banging his head against the wall threatening suicide. Patient has past history of polysubstance abuse but has also demonstrated over a long period of time bizarre behaviors in the absence of substance use. He is presenting with clear psychosis likely schizophrenia versus bipolar disorder which showed almost immediate improvement with initiation of Abilify with regression out that he is possibly cheeking the medication versus needing his dose increased. 1. Continue current medication. We will continue to offer the Abilify, but he continues to refuse. Plan to initiate Abilify maintena injection if granted the hold. 2. Continue every 15 minute checks for safety. 3. Encourage individual, group and milieu therapies. 4. Encourage sober living treatment after discharge at the highest level of care to which he is willing to commit. 5. We will work with family and treatment team to continue to try to win him over to the idea of the medication and now with his clear positioning on treatment the move to the injection once we are able to restart the medication will be critical. 21-day hearing shortly. Involuntary Hold Information 96 Hour Hold: 96 Hour Involuntary Admission: Yes 96 Hour Hold Ending Date: 11/30/20 96 Hour Hold Ending Time: 14:38 Attestations NPU Medical Necessity Statement*: Inpatient hospitalization is medically necessary and the clinically appropriate intervention at this time. We will monitor medications and make changes as indicated. Likely length of stay 8 to 10 days. Absent adherence to the medication there is no likely path to him showing improvement and being safe outside of the hospital without the prolonged hold. Coding Level of Care Code Acute Aircraft Maintenance Manager for Cait Damon
--- NOTE | 2020-12-02 13:44 | PC.NURSE ---
off the unit for [address]
[2020-12-02 13:54] VITALS: BP 120/64; PULSE 74; RESP 18; TEMP 36.2; O2SAT 95
[2020-12-02 20:24] VITALS: BP 140/99; PULSE 94; RESP 18; TEMP 36.7; O2SAT 98
[2020-12-03 06:00] VITALS: BP 103/55; PULSE 70; RESP 18; TEMP 36.3; O2SAT 99
--- NOTE | 2020-12-03 08:16 | PC.NURSE ---
refused scheduled Abilify and Neosporin ointment. pt offered scheduled meds, pt replied none of it
[2020-12-03] MEDS: nicotine 2 mg Gum BUCCAL ×3 (09:56→21:05)
[2020-12-03] MEDS: hyDROXYzine 25 mg Capsule 50 MG PO ×2 (12:04→21:06)
--- NOTE | 2020-12-03 12:04 | PC.NURSE ---
Addendum entered by Jennifer Green LPN 12/03/20 14:16: PRN MED EFFECTIVE NO FURTHER C/O ANXIETY Original Note: PRN VISTARIL 50 MG GIVEN PO PER PT C/O STATED ANXIETY.
[2020-12-03] MEDS: ARIPiprazole 10 mg Tablet PO (12:08)
--- NOTE | 2020-12-03 13:06 | P.PN_ITS ---
Subjective NPU Subjective: Interval history: Cresencio presents today initially reporting that he would not take the medication and we were planning for an injection. However with some continued conversation, cooler heads prevailed and he was willing to take the Abilify again orally. He reported having some success with Vistaril for his anxiety and so we discussed some using that to assist with any feelings he was having. We did discuss the fact that ultimately the plan was to use the injection but we wanted to make sure he was more acclimated to Abilify prior to the injection. We discussed that we will give the injection sometime this weekend, Monday at the latest. Mental Status Exam MSE Comments: This is a slender white male, tall, thin in hospital scrubs with adequate grooming and eye contact. He is having that almost trying to contain laughter look on his face. No abnormal movements except for mild psychomotor agitation. Mostly cooperative with exam in mild distress. Speech was slightly decreased rate and volume. Mood described as unhappy, affect congruent and odd. Thought process mostly organized. Thought content: Patient denied suicidal or homicidal ideation, there were no delusions reported, more paranoid and grandiose delusionality noted, he denied auditory or visual hallucinations. Attention and concentration were intact and memory was mostly reliable but none were formally tested. He was alert and oriented x3. Insight and judgment are impaired, impulse control is limited. Vitals/I&O/Wt Last Vital Signs Temp 97.3 F L 12/03/20 06:00 Pulse 70 12/03/20 06:00 Resp 18 12/03/20 06:00 BP 103/55 12/03/20 06:00 Pulse Ox 99 12/03/20 06:00 Data NPU : 11/24/20 15:10 11/24/20 15:10 A&P Additional A&P Information (1) Suicidal ideation: (2) Psychotic disorder: Additional A&P Information Patient presenting under unusual circumstances on 96-hour hold initiated by parents who are concerned about their son's safety with longstanding erratic, bizarre behavior with no psychotropic medication, recently taken to nursing home where he had been banging his head against the wall threatening suicide. Patient has past history of polysubstance abuse but has also demonstrated over a long period of time bizarre behaviors in the absence of substance use. He is presenting with clear psychosis likely schizophrenia versus bipolar disorder which showed almost immediate improvement with initiation of Abilify with regression out that he is possibly cheeking the medication versus needing his dose increased. He currently is agreeing to take the Abilify oral again. 1. Continue current medication. He is restarting Abilify 10 mg p.o. every morning plan to initiate Abilify maintena injection. 2. Continue every 15 minute checks for safety. 3. Encourage individual, group and milieu therapies. 4. Encourage sober living treatment after discharge at the highest level of care to which he is willing to commit. 5. He is now on a 21-day hold. Involuntary Hold Information 96 Hour Hold: 96 Hour Involuntary Admission: Yes 96 Hour Hold Ending Date: 11/30/20 96 Hour Hold Ending Time: 14:38 Attestations NPU Medical Necessity Statement*: Inpatient hospitalization is medically necessary and the clinically appropriate intervention at this time. We will monitor medi cations and make changes as indicated. Likely length of stay 8 to 10 days. Coding Level of Care Code Acute Track Inspecting Supervisor for Cait Damon
[2020-12-03 13:30] VITALS: BP 123/75; PULSE 100; RESP 18; TEMP 37.3; O2SAT 97
[2020-12-03 21:25] VITALS: BP 109/61; PULSE 71; RESP 19; TEMP 36.3; O2SAT 97
[2020-12-04 06:00] VITALS: BP 113/62; PULSE 55; RESP 18; TEMP 36.2; O2SAT 97
[2020-12-04] MEDS: ARIPiprazole 10 mg Tablet PO (08:05)
[2020-12-04] MEDS: acetaminophen 325 mg Tablet 650 MG PO ×3 (11:50→21:01)
[2020-12-04 14:00] VITALS: BP 133/78; PULSE 87; RESP 18; TEMP 36.3; O2SAT 96
[2020-12-04] MEDS: nicotine 2 mg Gum BUCCAL ×2 (14:22→19:50)
--- NOTE | 2020-12-04 17:47 | PM.NPN ---
Subjective NPU Subjective: Interval history: Cresencio presents today continuing to take the medication as prescribed and have slow improvement. He has had multiple somatic complaints but otherwise has not been a problem with the medication. We continue to discuss the plan for the long-acting injectable. He is not complaining of anxiety as he did when he was trying to prevent initiation of the medication. Mental Status Exam MSE Comments: This is a slender white male, tall, thin in hospital scrubs with adequate grooming and eye contact. No abnormal movements except for mild psychomotor retardation. Cooperative with exam in no acute distress. Speech was slightly decreased rate and volume. Mood described as feeling better, affect congruent and less odd. Thought process mostly organized. Thought content: Patient denied suicidal or homicidal ideation, there were no delusions reported or noted, he denied auditory or visual hallucinations. Attention and concentration were intact and memory was mostly reliable but none were formally tested. He was alert and oriented x3. Insight and judgment are limited, but improving, impulse control is limited, but improving. Vitals/I&O/Wt Last Vital Signs Temp 99.5 F 12/04/20 22:00 Pulse 92 12/04/20 22:00 Resp 17 12/04/20 22:00 BP 125/76 12/04/20 22:00 Pulse Ox 94 12/04/20 22:00 Data NPU : 11/24/20 15:10 11/24/20 15:10 A&P Additional A&P Information (1) Suicidal ideation: (2) Psychotic disorder: Additional A&P Information Patient presenting under unusual circumstances on 96-hour hold initiated by parents who are concerned about their son's safety with longstanding erratic, bizarre behavior with no psychotropic medication, recently taken to senior living where he had been banging his head against the wall threatening suicide. Patient has past history of polysubstance abuse but has also demonstrated over a long period of time bizarre behaviors in the absence of substance use. He is presenting with clear psychosis likely schizophrenia versus bipolar disorder which showed almost immediate improvement with initiation of Abilify with regression out that he is possibly cheeking the medication versus needing his dose increased. He currently is agreeing to take the Abilify oral again. 1. Continue current medication. 2. Continue every 15 minute checks for safety. 3. Encourage individual, group and milieu therapies. 4. Encourage sober living treatment after discharge at the highest level of care to which he is willing to commit. 5. He is now on a 21-day hold. Involuntary Hold Information 96 Hour Hold: 96 Hour Involuntary Admission: Yes 96 Hour Hold Ending Date: 11/30/20 96 Hour Hold Ending Time: 14:38 Attestations NPU Medical Necessity Statement*: Inpatient hospitalization is medically necessary and the clinically appropriate intervention at this time. We will monitor medications and make changes as indicated. Likely length of stay 7-9 days. Coding Level of Care Code Acute Marina Manager for Cait Damon
[2020-12-04] MEDS: neomycin-poly-bacitracin oint 28 gm 1 APPLIC TOPICAL (20:59)
[2020-12-04] MEDS: hyDROXYzine 25 mg Capsule 50 MG PO (21:00)
[2020-12-04 22:00] VITALS: BP 125/76; PULSE 92; RESP 17; TEMP 37.5; O2SAT 94
[2020-12-04 22:32] LABS: Bilirubin Urine Neg (Negative); Blood Urine Neg (Negative); Glucose Urine UA Norm (Normal); Ketones Urine Negative (Negative); Leukocyte Esterase Urine Negative (Negative); Nitrate Urine Negative (Negative); Protein Urine Neg (Negative); Specific Gravity, Urine 1.015 (1.005-1.030); Urine Appearance Clear (CLEAR); Urine Color Yellow (Yellow); Urobilinogen Urine Norm (Negative); pH Urine 6 (5-7)
[2020-12-04 22:33] LABS: Add Urine Culture? No; Bacteria Urine TRACE /hpf
--- NOTE | 2020-12-05 05:13 | PC.NURSE ---
PM assessment 20/M admitted with SI, pt denies pain, denies SI/HI, contracted for safety, pt denies AH/VH at this time. Pt said he is feeling better and don't know why he waited to take medication. Pt said, I had an epiphany and the doctor realized it. I think I may get to go home soon. Pt pleasant and interactive with staff and other patients. He has been less attention seeking with nursing staff this evening. Pt ate snack, watched tv, and went to bed
[2020-12-05 06:00] VITALS: BP 101/57; PULSE 52; RESP 15; TEMP 36.7; O2SAT 98
[2020-12-05] MEDS: ARIPiprazole 10 mg Tablet PO (08:28)
[2020-12-05] MEDS: neomycin-poly-bacitracin oint 28 gm 1 APPLIC TOPICAL (08:29)
[2020-12-05] MEDS: acetaminophen 325 mg Tablet 650 MG PO ×2 (10:10→21:07)
[2020-12-05 13:41] VITALS: BP 126/76; PULSE 94; RESP 18; TEMP 36.8
--- NOTE | 2020-12-05 17:56 | PM.NPN ---
Subjective NPU Subjective: Interval history: Cresencio observe today endorsing that he continues to feel better except for some back pain he is attributing to a UTI. His urinalysis from admission did show some possible signs of a UTI but his repeat yesterday had no signs of infection. He is having cranberry juice when he can. We agreed to follow and see if his pain continued before repeating lab work. He continues to show slow improvement. Mental Status Exam MSE Comments: This is a slender white male, tall, thin in hospital scrubs with adequate grooming and eye contact. No abnormal movements except for mild psychomotor retardation. Cooperative with exam in no acute distress. Speech was slightly decreased rate and volume. Mood described as feeling better, affect congruent and less odd. Thought process mostly organized. Thought content: Patient denied suicidal or homicidal ideation, there were no delusions reported or noted, he denied auditory or visual hallucinations. Attention and concentration were intact and memory was mostly reliable but none were formally tested. He was alert and oriented x3. Insight and judgment are limited, but improving, impulse control is limited, but improving. Vitals/I&O/Wt Last Vital Signs Temp 98.0 F 12/05/20 20:37 Pulse 84 12/05/20 20:37 Resp 18 12/05/20 20:37 BP 137/90 12/05/20 20:37 Pulse Ox 98 12/05/20 20:37 Data NPU : 11/24/20 15:10 11/24/20 15:10 A&P Additional A&P Information (1) Suicidal ideation: (2) Psychotic disorder: Additional A&P Information Patient presenting under unusual circumstances on 96-hour hold initiated by parents who are concerned about their son's safety with longstanding erratic, bizarre behavior with no psychotropic medication, recently taken to [facility] where he had been banging his head against the wall threatening suicide. Patient has past history of polysubstance abuse but has also demonstrated over a long period of time bizarre behaviors in the absence of substance use. He is presenting with clear psychosis likely schizophrenia versus bipolar disorder which showed almost immediate improvement with initiation of Abilify with regression out that he is possibly cheeking the medication versus needing his dose increased. He currently is agreeing to take the Abilify oral again. 1. Continue current medication. 2. Continue every 15 minute checks for safety. 3. Encourage individual, group and milieu therapies. 4. Encourage sober living treatment after discharge at the highest level of care to which he is willing to commit. Involuntary Hold Information 96 Hour Hold: 96 Hour Involuntary Admission: Yes 96 Hour Hold Ending Date: 11/30/20 96 Hour Hold Ending Time: 14:38 Attestations NPU Medical Necessity Statement*: Inpatient hospitalization is medically necessary and the clinically appropriate intervention at this time. We will monitor medications and make changes as indicated. Likely length of stay 6-8 days. Coding Level of Care Code Acute Leather Goods Sales Representative for Cait Damon
[2020-12-05 20:37] VITALS: BP 137/90; PULSE 84; RESP 18; TEMP 36.7; O2SAT 98
[2020-12-05] MEDS: hyDROXYzine 25 mg Capsule 50 MG PO (21:07)
[2020-12-05] MEDS: nicotine 2 mg Gum BUCCAL (21:07)
[2020-12-06 06:00] VITALS: BP 109/57; PULSE 62; RESP 16; TEMP 36.5; O2SAT 97; BMI 23.7
--- NOTE | 2020-12-06 06:12 | PC.NURSE ---
@2100 vISTERIL 50MG pO GIVEN FOR ANXIETY. FOLLOW UP 2130 PT IS LESS LESS ANXIOUS
[2020-12-06] MEDS: ARIPiprazole 10 mg Tablet PO (09:23)
--- NOTE | 2020-12-06 11:56 | P.PN_ITS ---
Subjective NPU Subjective: Interval history: Cresencio presents today reporting that he is feeling better each day with the medication. He was open to the initiation of the Abilify Maintena injection in the next 24 hours as we hope for continued improvement and discharge this coming week. He denies any major issues he reports he sleeping very well and eating fine. Mental Status Exam MSE Comments: This is a slender white male, tall, thin in hospital scrubs with adequate grooming and eye contact. No abnormal movements except for mild psychomotor retardation. Cooperative with exam in no acute distress. Speech was slightly decreased rate and volume. Mood described as feeling better, affect congruent and less odd. Thought process mostly organized. Thought content: Patient denied suicidal or homicidal ideation, there were no delusions reported or noted, he denied auditory or visual hallucinations. Attention and concentration were intact and memory was mostly reliable but none were formally tested. He was alert and oriented x3. Insight and judgment are improving, impulse control is limited, but improving. Vitals/I&O/Wt Last Vital Signs Temp 97.7 F 12/06/20 06:00 Pulse 62 12/06/20 06:00 Resp 16 12/06/20 06:00 BP 109/57 12/06/20 06:00 Pulse Ox 97 12/06/20 06:00 Weight last 48 hrs Weight 81.647 kg Data NPU : 11/24/20 15:10 11/24/20 15:10 A&P Additional A&P Information (1) Suicidal ideation: (2) Psychotic disorder: Additional A&P Information Patient presenting under unusual circumstances on 96-hour hold initiated by parents who are concerned about their son's safety with longstanding erratic, bizarre behavior with no psychotropic medication, recently taken to [facility] where he had been banging his head against the wall threatening suicide. Patient has past history of polysubstance abuse but has also demonstrated over a long period of time bizarre behaviors in the absence of substance use. He is presenting with clear psychosis likely schizophrenia versus bipolar disorder which showed almost immediate improvement with initiation of Abilify with regression out that he is possibly cheeking the medication versus needing his dose increased. He currently is taking an oral Abilify. 1. Continue current medication. Abilify maintena injection 400 mg IM tomorrow. 2. Continue every 15 minute checks for safety. 3. Encourage individual, group and milieu therapies. 4. Encourage sober living treatment after discharge at the highest level of care to which he is willing to commit. Involuntary Hold Information 96 Hour Hold: 96 Hour Involuntary Admission: Yes 96 Hour Hold Ending Date: 11/30/20 96 Hour Hold Ending Time: 14:38 Attestations NPU Medical Necessity Statement*: Inpatient hospitalization is medically necessary and the clinically appropriate intervention at this time. We will monitor medications and make changes as indicated. Likely length of stay 5-7 days. Coding Level of Care Code Acute Wood Panel Inspector for Cait Damon
[2020-12-06 13:57] VITALS: BP 128/83; PULSE 94; RESP 18; TEMP 36.9
[2020-12-06 19:39] VITALS: BP 109/69; PULSE 6; RESP 18; TEMP 36.5; O2SAT 97
[2020-12-06] MEDS: hyDROXYzine 25 mg Capsule 50 MG PO (20:08)
[2020-12-06] MEDS: nicotine 2 mg Gum BUCCAL (20:08)
[2020-12-06] MEDS: OLANZapine 5 mg ODT PO (20:45)
[2020-12-06] MEDS: neomycin-poly-bacitracin oint 28 gm 1 APPLIC TOPICAL (20:47)
[2020-12-07 06:00] VITALS: BP 114/69; PULSE 70; RESP 17; TEMP 36.6; O2SAT 97
[2020-12-07] MEDS: ARIPiprazole 10 mg Tablet PO (08:40)
[2020-12-07 14:00] VITALS: BP 113/78; PULSE 79; RESP 18; TEMP 36.2; O2SAT 97
[2020-12-07] MEDS: nicotine 2 mg Gum BUCCAL ×2 (14:47→17:22)
[2020-12-07] MEDS: hyDROXYzine 25 mg Capsule 50 MG PO ×2 (14:47→20:49)
[2020-12-07] MEDS: ARIPiprazole Maintena 400 MG IM (14:49)
--- NOTE | 2020-12-07 14:56 | PC.NURSE ---
TOÑO MAINTENA 400 MG GIVEN IM ORDERED BY PHYSICIAN. INJECTION GIVEN IM IN RIGHT DELTOID. PT EDUCATED ON INJECTION GIVEN & VERBALIZED UNDERSTANDING. WILL CONT TO MONITOR INJECTION SITE FOR ANY REDNESS, SWELLING, OR IRRITATION. LOT [id number] EXP NOV 2022
--- NOTE | 2020-12-07 15:01 | NUR.SHIFT ---
Addendum entered by Jennifer Green LPN 12/07/20 16:04: PRN MED EFFECTIVE NO FURTHER C/O ANXIETY Original Note: PRN VISTARIL 50 MG GIVEN PO PER PT C/O STATED ANXIETY. NO OUTWARD S/S OF ANXIETY, BUT PT HAS BEEN ISOLATING TO HIS ROOM MOST OF THE MORNING. WILL CONT TO MONITOR.
--- NOTE | 2020-12-07 15:07 | P.PN_ITS ---
Subjective NPU Subjective: Interval history: Cresencio presents today reporting that he is continuing to feel positive changes. He has been very cooperative on the unit. Today he got his 400 mg IM of Abilify for his monthly injection and we discussed again the plan to have him take oral medication for 13 more days and then he will be on the injection only. The treatment team is working with him and his mother on a few options for where he will be able to go when he is discharged. We talked about the likely discharge in the next couple of days. Mental Status Exam MSE Comments: This is a slender white male, tall, thin in hospital scrubs with adequate grooming and eye contact. No abnormal movements except for mild psychomotor retardation. Cooperative with exam in no acute distress. Speech w as more normal rate and volume. Mood described as pretty good, affect congruent. Thought process organized. Thought content: Patient denied suicidal or homicidal ideation, there were no delusions reported or noted, he denied auditory or visual hallucinations. Attention and concentration were intact and memory was mostly reliable but none were formally tested. He was alert and oriented x3. Insight and judgment are improving, impulse control is limited, but improving. Vitals/I&O/Wt Last Vital Signs Temp 97.1 F L 12/07/20 14:00 Pulse 79 12/07/20 14:00 Resp 18 12/07/20 14:00 BP 113/78 12/07/20 14:00 Pulse Ox 97 12/07/20 14:00 Weight last 48 hrs Weight 81.647 kg Data NPU : 11/24/20 15:10 11/24/20 15:10 A&P Additional A&P Information (1) Suicidal ideation: (2) Psychotic disorder: Additional A&P Information Patient presenting under unusual circumstances on 96-hour hold initiated by parents who are concerned about their son's safety with longstanding erratic, bizarre behavior with no psychotropic medication, recently taken to assisted where he had been banging his head against the wall threatening suicide. Patient has past history of polysubstance abuse but has also demonstrated over a long period of time bizarre behaviors in the absence of substance use. He is presenting with clear psychosis likely schizophrenia versus bipolar disorder which showed almost immediate improvement with initiation of Abilify with regression out that he is possibly cheeking the medication versus needing his dose increased. He currently is taking an oral Abilify. 1. Continue current medication. Abilify maintena injection 400 mg IM. 2. Continue every 15 minute checks for safety. 3. Encourage individual, group and milieu therapies. 4. Encourage sober living treatment after discharge at the highest level of care to which he is willing to commit. Involuntary Hold Information 96 Hour Hold: 96 Hour Involuntary Admission: Yes 96 Hour Hold Ending Date: 11/30/20 96 Hour Hold Ending Time: 14:38 Attestations NPU Medical Necessity Statement*: Inpatient hospitalization is medically necessary and the clinically appropriate intervention at this time. We will monitor medications and make changes as indicated. Likely length of stay 2-4 days. Coding Level of Care Code Acute Room Service Associate for Cait Damon
[2020-12-07 20:44] VITALS: BP 130/73; PULSE 94; RESP 16; TEMP 36.2; O2SAT 98
[2020-12-07] MEDS: OLANZapine 5 mg ODT PO (20:49)
[2020-12-07] MEDS: neomycin-poly-bacitracin oint 28 gm 1 APPLIC TOPICAL (20:49)
[2020-12-07] MEDS: acetaminophen 325 mg Tablet 650 MG PO (21:13)
--- NOTE | 2020-12-07 22:21 | PC.NURSE ---
PM ASSESSMENT PT V/S ARE WNL, PT STATES HE HAS HEADACHE RATED 4 ON 1-10 PAIN SCALE,PT STATED THAT SINCE BEGINNING NEW MEDICATION TODAY THAT HE IS EXPERIENCING BLURRED VISION, AND STATES HE IS ANXIOUS, DENIES SI/HI, DENIES AH/VH. PT IS RUNNING AND SKIPPING DOWN THE HALLWAY, PT NEEDED INSTRUCTION ON BEHAVIORAL LIMITATIONS/EXPECTATIONS ON THE UNIT, PT VERBALIZED UNDERSTANDING,
[2020-12-08 06:00] VITALS: BP 94/53; PULSE 56; RESP 16; TEMP 36.6; O2SAT 97
[2020-12-08] MEDS: ARIPiprazole 10 mg Tablet PO (08:49)
[2020-12-08] MEDS: nicotine 2 mg Gum BUCCAL (12:43)
[2020-12-08] MEDS: hyDROXYzine 25 mg Capsule 50 MG PO ×2 (13:43→20:41)
[2020-12-08] MEDS: acetaminophen 325 mg Tablet 650 MG PO ×2 (13:43→22:21)
[2020-12-08 13:46] VITALS: BP 117/65; PULSE 81; RESP 16; TEMP 37.3; O2SAT 97
--- NOTE | 2020-12-08 16:24 | P.PN_ITS ---
Subjective NPU Subjective: Interval history: Cresencio presents today having had a successful call with [facility] and awaiting their response. He was somewhat mystical today in identifying how everything came together. He discussed how the #1 is played a role in everything that happened. Jamie has only having one bed, his dad only winning something 1 time which gave him some additional resources to help in the placement, him being in room 1 (notably it says 1 on his door as the other 2 numbers were peeled off previous to his admission), and so on with the #1. Otherwise he reports he is feeling well and excited about the prospect of being discharged likely medically out. Mental Status Exam MSE Comments: This is a slender white male, tall, thin in hospital scrubs with adequate grooming and eye contact. No abnormal movements. Cooperative with exam in no acute distress. Speech was more normal rate and volume. Mood described as pretty good, affect congruent. Thought process organized. Thought content: Patient denied suicidal or homicidal ideation, there were no delusions reported or noted, he denied auditory or visual hallucinations. Attention and concentration were intact and memory was mostly reliable but none were formally tested. He was alert and oriented x3. Insight and judgment are improving, impulse control is limited, but improving. Vitals/I&O/Wt Last Vital Signs Temp 97.5 F L 12/08/20 20:15 Pulse 93 12/08/20 20:15 Resp 18 12/08/20 20:15 BP 146/91 12/08/20 20:15 Pulse Ox 97 12/08/20 20:15 Data NPU : 11/24/20 15:10 11/24/20 15:10 A&P Additional A&P Information (1) Suicidal ideation: (2) Psychotic disorder: Additional A&P Information Patient presenting under unusual circumstances on 96-hour hold initiated by parents who are concerned about their son's safety with longstanding erratic, bizarre behavior with no psychotropic medication, recently taken to senior care where he had been banging his head against the wall threatening suicide. Patient has past history of polysubstance abuse but has also demonstrated over a long period of time bizarre behaviors in the absence of substance use. He is presenting with clear psychosis likely schizophrenia versus bipolar disorder which showed almost immediate improvement with initiation of Abilify with regression out that he is possibly cheeking the medication versus needing his dose increased. He currently is taking an oral Abilify for the balance of the 14 days until he will just be on the injection started Monday. 1. Continue current medication. 2. Continue every 15 minute checks for safety. 3. Encourage individual, group and milieu therapies. 4. Encourage sober living treatment after discharge at the highest level of care to which he is willing to commit. Involuntary Hold Information 96 Hour Hold: 96 Hour Involuntary Admission: Yes 96 Hour Hold Ending Date: 11/30/20 96 Hour Hold Ending Time: 14:38 Attestations NPU Medical Necessity Statement*: Inpatient hospitalization is medically necessary and the clinically appropriate intervention at this time. We will monitor medications and make changes as indicated. Likely discharge in the next 48 hours with availability at [facility]. Coding Level of Care Code Acute Supervisor Carbon Paper Coating for Cait Damon
[2020-12-08 20:15] VITALS: BP 146/91; PULSE 93; RESP 18; TEMP 36.4; O2SAT 97
[2020-12-08] MEDS: trazodone 50 mg Tablet PO (20:41)
[2020-12-08] MEDS: neomycin-poly-bacitracin oint 28 gm 1 APPLIC TOPICAL (20:43)
--- NOTE | 2020-12-09 01:59 | PC.NURSE ---
PM ASSESSMENT V/S ARE WNL, HEART/LUNG SOUNDS ARE WNL, PT IS SMILING AND HAPPY THAT HE WILL BE GOING TO [place] IN THE MORNING. PT DID COMPLAIN OF BLURRY VISION LAST NIGHT BUT STATES THAT THIS IS RESOLVED THIS EVENING. PT STATES HE IS IN PAIN RATED A 4 ON A 1-10 PAIN SCALE, THAT IT IS SHARP, THROBBING, AND IT IS LOCATED IN HIS HEAD BEHIND THE EYES. MED NURSE NOTIFIED, TYLENOL GIVEN FOR PAIN, PT RESPONDED WELL TO THIS. PT IS CURRENTLY SLEEPING. WILL CONTINUE TO MONITOR.
[2020-12-09 06:00] VITALS: BP 99/62; PULSE 80; RESP 18; TEMP 36.4; O2SAT 98
[2020-12-09] MEDS: ARIPiprazole 10 mg Tablet PO (08:48)
--- NOTE | 2020-12-09 10:34 | P.DS_ITS ---
Diagnoses at Discharge Discharge Diagnosis (1) Suicidal ideation: Status: Resolved (2) Psychotic disorder: Status: Acute Reason for Visit Reason for Visit: 96 Brief History: History of Present Illness Cresencio Barlow is a 20 year old male presented to the emergency department by police after being released from senior care, per chart review, patient had been b anging his head against the wall making threats of harming himself although at the time of emergency department evaluation was denying any suicidal ideation. Patient is currently denying any suicidal ideation and denying any psychiatric symptoms although he sits in front of the interviewer smiling inappropriately and occasionally laughing inappropriately and suddenly stopped answering questions when asked about past psychiatric treatments stating, I know which are trying to do to me. Patient is a difficult historian secondary to not providing any additional information after asked about past treatment for psych issues. Patient currently denies any psychotic symptoms, denies any auditory or visual destinations, denies any delusions. Patient states that he is happy, and denies any current depressive symptoms, denies any past or recent sustained low mood states. Denies any periods of irritability or anger. Denies any past or recent manic or hypomanic episodes. COLLATERAL: Jeannine Barlow, patient's mother, states that the patient lives with her and her on occasion but often times will set off on foot, sometimes without close erratically. She also reports that he will intermittently demonstrate bizarre behavior and sometimes go off the handle and destroy things in the house without provocation. She states that she is never seen him appear to be responding to internal stimuli but does report that he occasionally acts in a bizarre behavior that seems like something is going on inside of his head. She reports that sometimes that he has burst out into tears when he is drawn something on a piece of paper stating that he does not understand why no one understands that he is just drawn something that has solved all of the world's problems. He has also reportedly gone out in the middle of the night and chopped down their mailbox states stating that it serves no purpose. Patient's mother reports ongoing concerns about acute safety given that he had stated before [place] that he did not plan on being alive past [place]. Hospital Course Hospital Course Cresencio presented to the emergency department with active addiction, psychosis and concerns for suicidal ideation, so he was admitted to the Neuropsychiatric unit for definitive treatment of those issues. He was resistant to treatment during the visit and a 96 hour hold went to a 21 day hold his psychosis slowly resolved during the stay. He was started on abilify and ultimately took the injection of 400 mg IM. He showed improvement and was able to contract for safety prior to discharge. During the hospitalization, patient had routine laboratory studies which were within normal limits except for few outliers. Additionally there was a general medical evaluation which was also within normal limits and revealed no new acute processes. Discharge Summary: At the time of discharge, lethality was denied and psychosis was resolving. Mood and anxiety were well managed. Patient endorsed a plan to avoid all drugs of abuse and follow-up with the aftercare recommendations of the treatment team. Patient was evaluated and deemed to be absent credible lethality, and had achieved the maximum benefit from an inpatient hospitalization, so was discharged. Involuntary Hold Information 96 Hour Hold: 96 Hour Involuntary Admission: Yes 96 Hour Hold Ending Date: 11/30/20 96 Hour Hold Ending Time: 14:38 Mental Status Exam MSE Comments: This is a slender white male, tall, thin in hospital scrubs with adequate grooming and eye contact. No abnormal movements. Cooperative with exam in no acute distress. Speech was more normal rate and volume. Mood described as pretty good, affect congruent. Thought process organized. Thought content: Patient denied suicidal or homicidal ideation, there were no delusions reported or noted, he denied auditory or visual hallucinations. Attention and concentration were intact and memory was mostly reliable but none were formally tested. He was alert and oriented x3. Insight and judgment are improving, impulse control is limited, but improving. Discharge Data Vitals: Last Vital Signs Temp 97.5 F L 12/09/20 06:00 Pulse 80 12/09/20 06:00 Resp 18 12/09/20 06:00 BP 99/62 12/09/20 06:00 Pulse Ox 98 12/09/20 06:00 Discharge Plan Discharge Patient Disposition: Home Condition: Stable Prescriptions: New Abilify Maintena 400 mg suspension,extended rel recon 400 mg IM Q28D Qty: 1 RF: 1 trazodone 50 mg Tablet 50 mg PO BEDTIME PRN (Reason: insomnia) 30 Days Qty: 30 RF: 1 Continued No Known Home Medications RF: 0 Discharge Orders: Discharge Order (Routine); Ordered 02/10/21 Ordered By: Chris Sue Referrals: Jamie Galeano [Other] [facility] [Outside] (Will need to follow up for initial psychiatric evaluation and monthly Abilify Maintenna injection due around 01/04/2021. [facility] will contact the Jamie Galeano with this appointment time. You will need to pick this medication up at the pharmacy and bring to your appointment with you.) [facility] [Outside] (Tiffany Froylan will assist getting to outpatient therapy) Patient Instructions: Trazodone (By mouth), Aripiprazole (By mouth), Aripiprazole (Injection) Discharge Attestations NPU Time Spent in Discharge Care*: less than 30 min Specific Discharge Activities: Specific discharge activities: educating patient, discussing with case hardener/social workers/dc planners, documenting/other paperwork and evaluating patient/reviewing data Coding Level of Care Code Acute Payloader Machine Operator for Cait Fwd Diagnoses Suicidal ideation R45.851 Psychotic disorder F29
[2020-12-09 10:44] VITALS: BP 99/62; PULSE 80; RESP 18; TEMP 36.4; O2SAT 98
[2020-12-09] MEDS: nicotine 2 mg Gum BUCCAL (12:53)
== END 2020-12-09 14:13 | disposition home or self-care (01) | DRG 885 ==
LOC: ER 17:23 → NP 17:39
PROVIDERS: Admitting Provider Psychiatry & Neurology Psychiatry; Emergency Provider Family Medicine; Visit Provider Psychiatry & Neurology Psychiatry
DX: F29 Unspecified psychosis not due to a substance or known physiological condition (principal); R45.851 Suicidal ideations
CPT/HCPCS: 12345; 80053; 80306; 80307; 81001; 85025; 96372; 99284

== ENCOUNTER → 2021-02-16 07:48 | Outpatient (BNVA) | payer BC, SELFPAY | PROVIDERS: Visit Provider Counselor Professional | DX: F31.32 Bipolar disorder, current episode depressed, moderate (principal); F90.8 Attention-deficit hyperactivity disorder, other type | CPT/HCPCS: 90791 ==

== ENCOUNTER 2021-10-03 19:09 | Emergency (ER) | payer BC, SELFPAY ==
[2021-10-03 19:13] VITALS: BP 124/81; PULSE 79; RESP 18; TEMP 37.2; O2SAT 99; BMI 22.4
--- NOTE | 2021-10-03 19:28 | ED_ITS ---
HPI - Wound/Laceration General: Chief Complaint: Wound/Laceration Stated Complaint: BUSTED LIP Time Seen by Provider: 10/03/21 19:24 History of Present Illness: HPI narrative: Patient comes in for a wound to the lower lip. Patient reports he fell and hit the lip against his teeth. Patient is alert and oriented and appears well. Laceration superficial and bleeding is controlled. Review of Systems General: Reports: 10 or more systems reviewed and unremarkable except in HPI and below Skin/Breast: Reports: other (Lower lip laceration) Physical Exam Const: COMMON NORMALS: no acute distress and patient oriented x3 GENERAL APPEARANCE: cooperative HENMT: COMMON NORMALS: normocephalic and Normal external nose present HEAD & SCALP: normal to inspection and normocephalic NOSE: Normal external nose present MOUTH: other (1 cm flap laceration to the inner lower lip, superficial.) THROAT: posterior oropharynx normal Eye: GENERAL EYE: appearance normal, both eyes and all related structures Neck/C-Spine: COMMON NORMALS: full ROM Chest: COMMONS NORMALS: normal inspection of the chest Resp: COMMON NORMALS: normal respiratory effort EFFORT & INSPECTION: Yes able to speak in complete sentences Cardio: COMMON NORMALS: regular rate and regular rhythm RATE: regular rate RHYTHM: regular rhythm GI: COMMON NORMALS: non-tender Back/Pelvis: COMMON NORMALS: thoracic and lumbar spine normal to inspection Extremity: COMMON NORMALS: normal to inspection Neuro: COMMON NORMALS: patient oriented x3 and moves all extremities Psych: COMMON NORMALS: mental status grossly normal and cooperative Skin: COMMON NORMALS: no rashes or lesions noted GENERAL SKIN EXAM: no rashes or lesions noted Procedures Laceration Laceration 1: Site: lip Size (cm): 1 Description: flap ([place] border was not involved) Depth: simple, single layer Pre-repair: wound explored Size (cm): other (Skin adhesive) Course Vital Signs: Vital signs: Vital Signs Temperature 99 F 10/03/21 19:13 Pulse Rate 79 10/03/21 19:13 Respiratory Rate 18 10/03/21 19:13 Blood Pressure 124/81 10/03/21 19:13 Pulse Oximetry 99 10/03/21 19:13 MDM - Wound/Laceration MDM Narrative: Medical decision making narrative: Patient has a superficial laceration to the lower lip with a 1 cm flap. No injury to teeth are noted. Patient is alert and oriented. Skin is warm and dry. Differential diagnosis includes but not limited to dental injury, laceration, need for prophylaxis tetanus. Patient's immunizations are up-to-date. Wound was cleaned and a small amount of skin adhesive was used to adhere the flap. Patient was encouraged to use soft diet for the next 24 to 48 hours. Avoid chewing on laceration. Reassured patient of wound should heal well if he just needed to try to leave it alone is much as possible. Patient reported understanding and agreed to plan. Discharge Plan Discharge Patient Disposition: Home Clinical Impression: Laceration of lower lip Qualifiers: Encounter type: initial encounter Qualified Code(s): S01.511A - Laceration without foreign body of lip, initial encounter Condition: Stable Prescriptions: No Action hydroxyzine pamoate [Vistaril] 25 mg capsule 25 mg PO Q8H PRN (Reason: itching) Qty: 30 RF: 0 Abilify Maintena 400 mg suspension,extended rel recon 400 mg IM Q28D Qty: 1 RF: 1 trazodone 50 mg Tablet 50 mg PO BEDTIME PRN (Reason: insomnia) 30 Days Qty: 30 RF: 1 Discharge Orders: Discharge ED (Routine); Ordered 10/03/21 Ordered By: Vik Cast Discharge Diet: Usual diet Discharge Activity: Increase activity as tolerated Patient Instructions: Laceration (DC), Opioid Safety Activity Restrictions/Additional Instructions: Soft diet for the next 24 hours. Avoid chewing on the laceration. Healing should occur rapidly. Follow-up with primary care for further instruction. Return to the ER for new concerns. Coding Level of Care Code ED Assistant Professor Of Marine Biology for Cait Fwd Exam Comprehensive
== END 2021-10-03 19:40 | disposition home or self-care (01) ==
PROVIDERS: Emergency Provider Nurse Practitioner Family
DX: S01.511A Laceration without foreign body of lip, initial encounter (principal); W19.XXXA Unspecified fall, initial encounter
CPT/HCPCS: 12011; 99282

== ENCOUNTER 2021-10-08 13:01 | Inpatient (IN) | payer BC, SELFPAY ==
--- NOTE | 2021-10-08 13:03 | ED.C_ITS ---
HPI - Psych General: Chief Complaint: Psychiatric Symptoms Stated Complaint: 96 HOUR HOLD Time Seen by Provider: 10/08/21 13:03 History of Present Illness: HPI Narrative: Mr. Barlow is a 20-year-old gentleman with history of schizoaffective disorder presents emergency department via law enforcement for a court ordered 96-hour hold. He reports he is currently in penitentiary due to a restraining order violation. He has difficulty telling me when his symptoms are worse and when asked to describe onset of symptoms had about 12 years of age. He currently endorses a chemical imbalance in my head that makes me want to choke myself to fix it . He otherwise denies medical complaints. No other specific changes in health, exacerbating, or alleviating factors. The patient reports that he has been off his medications for at least 2 years and when he was on the Abilify he expresses concerns that he was doing things that he could not control such as cooking a plastic bowl on a glass stove top with baking grease and then putting it on a sandwich and eating it. Review of Systems General: Reports: 10 or more systems reviewed and unremarkable except in HPI and below Physical Exam Narrative: EXAM NARRATIVE: GENERAL/CONSTITUTIONAL - well-appearing. No acute distress. Eyes - no scleral icterus, no conjunctival injection ENMT - Atraumatic external nose and ears. NECK - supple. trachea midline CARDIOVASCULAR - regular rate and rhythm. RESPIRATORY -clear to auscultation bilaterally. ABDOMEN/GI - Nontender/Nondistended. MSK - Extremities without obvious deformity or tenderness to palpation SKIN - Warm, Dry NEURO - alert and appropriately oriented. Moves all extremities equally. PSYCH - calm and cooperative. Limited history. Course ED course: - Patient was seen and evaluated by me at bedside - Vitals obtained and reviewed - Initial evaluation notable for as noted - Labs notable for no acute medical finding to explain symptoms - based on ED eval to this point there is no obvious condition that would preclude inpatient management of psychiatric concerns. - Psychiatry service contacted and agreed to admit the patient. Vital Signs: Vital signs: Vital Signs Temperature 98.3 F 10/16/21 16:26 Pulse Rate 53 L 10/17/21 08:07 Respiratory Rate 18 10/17/21 08:07 Blood Pressure 106/63 10/17/21 08:07 Pulse Oximetry 98 10/17/21 08:07 [facility] - Psych Medical Records: Attestation: I reviewed the patient's medical records. Lab Data: Attestation: I reviewed the patient's lab results. Labs: Lab Results 10/08/21 10/08/21 10/08/21 13:43 14:28 14:28 WBC 6.9 10^3/uL 10^3/ uL (4.0-10.0) RBC 5.08 10^6/uL 10^6 /uL (4.1-5.3) Hgb 15.0 g/dL g/dL (11.7-16.6) Hct 44.9 % % (42.0-52.0) MCV 88.4 fl fl (80-94) MCH 29.5 pg pg (28.0-34.0) MCHC 33.4 g/dL g/dL (30.0-36.0) RDW 11.9 % L % (12.1-15.1) Plt Count 207 10^3/cmm 10^3 /cmm (130-400) MPV 9.8 fL fL (7.4-10.4) Neut % (Auto) 70.5 % % Lymph % (Auto) 23.1 % % [place] % (Auto) 4.1 % % Eos % (Auto) 1.6 % % Baso % (Auto) 0.6 % % Neut # (Auto) 4.86 10^3/uL 10^3 /uL (1.8-7.7) Lymph # (Auto) 1.6 10^3/uL 10^3/ uL (0.8-4.8) [place] # (Auto) 0.3 10^3/uL 10^3/ uL (0.2-0.9) Eos # (Auto) 0.1 10^3/uL 10^3/ uL (0.0-0.8) Baso # (Auto) 0.0 10^3/uL 10^3/ uL (0.0-0.1) Nucleated RBC % (a uto) 0 % % Nucleated RBCs # 0.0 /100WBC /100W BC Sodium 140 mmol/L mmol/L (136-145) Potassium 4.3 mmol/L mmol/L (3.5-5.1) Chloride 103 mmol/L mmol/L (98-107) Carbon Dioxide 23 mmol/L mmol/L (22-29) Anion Gap 18.3 (5-19) BUN 11 mg/dL mg/dL (6-20) Creatinine 0.9 mg/dL mg/dL (0.7-1.2) GFR Calculation 106.5 mL/min mL/m in (90-130) Glucose 77 mg/dL mg/dL (65-115) Calculated Osmolal ity 288 mOsm/kg mOsm/ kg (285-295) Calcium 8.9 mg/dL mg/dL (8.5-10.5) Total Bilirubin 0.2 mg/dL mg/dL (0.15-1.2) AST 15 U/L U/L (0-40) ALT 10 U/L U/L (0-41) Alkaline Phosphata se 81 IU/L IU/L (40-130) Total Protein 7.1 g/dL g/dL (6.6-8.7) Albumin 4.7 g/dL g/dL (3.5-5.2) Globulin 2.4 g/dL g/dL (1.3-4.6) TSH 1.52 uIU/mL uIU/m L (0.27-4.20) Salicylates < 0.3 mg/dL L mg/ dL (3-10) Urine Opiates Scre en Negative ng/mL ng /mL (Negative) Acetaminophen < 5.0 ug/mL L ug/ mL (10-30) Ur Barbiturates Sc reen Negative ng/mL ng /mL (Negative) Ur Phencyclidine S crn Negative ng/mL ng /mL (Negative) Ur Amphetamines Sc reen Negative ng/mL ng /mL (Negative) U Benzodiazepines Scrn Negative ng/mL ng /mL (Negative) Urine Cocaine Scre en Negative ng/mL ng /mL (Negative) U Marijuana (THC) Screen Negative ng/mL ng /mL (Negative) Ethyl Alcohol < 10 mg/dL mg/dL (0-10) Discharge Plan Discharge Patient Disposition: Admitted As Inpatient Admit Provider: Chris Sue Condition: Stable Discharge Diet: As Directed and Regular Discharge Activity: Resume usual activity Coding Level of Care Code ED Manager Development for Cait Damon
[2021-10-08 13:10] VITALS: BP 132/58; PULSE 63; RESP 16; TEMP 37.3; O2SAT 98; BMI 22.4
[2021-10-08 13:38] VITALS: BP 132/58; PULSE 63; RESP 16; TEMP 37.2; O2SAT 98
[2021-10-08 14:16] LABS: Amphetamines Screen Urine Negative (Negative); Barbiturates Screen Urine Negative (Negative); Benzodiazepines Screen Urine Negative (Negative); Cocaine Screen Urine Negative (Negative); Opiate Screen Urine Negative (Negative); PCP Screen Urine Negative (Negative); THC Screen Urine Negative (Negative)
[2021-10-08 14:37] LABS: Basophils % 0.6 %; Eosinophils # 0.1 10^3/uL (0.0-0.8); Eosinophils % 1.6 %; Hematocrit 44.9 % (42.0-52.0); Lymphocytes # 1.6 10^3/uL (0.8-4.8); Lymphocytes % 23.1 %; Mean Corpuscular HGB Conc 33.4 g/dL (30.0-36.0); Mean Corpuscular Hemoglobin 29.5 pg (28.0-34.0); Mean Corpuscular Volume 88.4 fl (80-94); Mean Platelet Volume 9.8 fL (7.4-10.4); Monocytes # 0.3 10^3/uL (0.2-0.9); Monocytes % 4.1 %; Neutrophils # 4.86 10^3/uL (1.8-7.7); Neutrophils % 70.5 %; Nucleated Red Blood Cells % 0 %; Platelet Count 207 10^3/cmm (130-400); Red Blood Count 5.08 10^6/uL (4.1-5.3); Red Cell Distribution Width 11.9 % (12.1-15.1); White Blood Count 6.9 10^3/uL (4.0-10.0)
[2021-10-08 15:08] LABS: Acetaminophen < 5.0 ug/mL (10-30); Alanine Aminotransferase 10 U/L (0-41); Albumin Level 4.7 g/dL (3.5-5.2); Alcohol Level < 10 mg/dL (0-10); Alkaline Phosphatase 81 IU/L (40-130); Aspartate Amino Transferase 15 U/L (0-40); Blood Urea Nitrogen 11 mg/dL (6-20); Calcium 8.9 mg/dL (8.5-10.5); Carbon Dioxide 23 mmol/L (22-29); Chloride 103 mmol/L (98-107); Creatinine Clr Calc Pharmacy 148.8815; Globulin 2.4 g/dL (1.3-4.6); Glomerular Filtration Rate 106.5 mL/min (90-130); Glucose 77 mg/dL (65-115); Osmolality Calculated 288 mOsm/kg (285-295); Salicylate < 0.3 mg/dL (3-10); Sodium 140 mmol/L (136-145); Thyroid Stimulating Hormone 1.52 uIU/mL (0.27-4.20); Total Bilirubin 0.2 mg/dL (0.15-1.2); Total Protein 7.1 g/dL (6.6-8.7)
[2021-10-08 15:09] LABS: Anion Gap 18.3 (5-19); Potassium 4.3 mmol/L (3.5-5.1)
[2021-10-08 16:34] VITALS: BP 130/61; PULSE 65; RESP 18; TEMP 36.7; O2SAT 99
[2021-10-08 16:43] VITALS: BP 130/61; PULSE 65; RESP 18; TEMP 36.7; O2SAT 99
[2021-10-08 18:09] VITALS: BP 112/77; PULSE 68; RESP 18; TEMP 36.7; O2SAT 100
[2021-10-08 20:24] VITALS: BP 142/83; PULSE 94; RESP 16; TEMP 36.6; O2SAT 100
[2021-10-08] MEDS: trazodone 50 mg Tablet PO (21:08)
[2021-10-08] MEDS: hyDROXYzine 25 mg Capsule 50 MG PO (21:08)
[2021-10-08] MEDS: nicotine 2 mg Gum BUCCAL (21:43)
[2021-10-08] MEDS: acetaminophen 325 mg Tablet 650 MG PO (22:06)
[2021-10-09 06:00] VITALS: BP 109/73; PULSE 57; RESP 18; TEMP 36.7; O2SAT 98
--- NOTE | 2021-10-09 09:28 | P.NPUHP_ITS ---
Providers/Chief Complaint Admitting Physician: Chris Sue MD Chief Complaint: 96 HOUR HOLD HPI NPU History of Present Illness Cresencio Barlow is a 20 year old male who presented to the emergency department with the following report: Chief Complaint: Psychiatric Symptoms Stated Complaint: 96 HOUR HOLD Time Seen by Provider: 10/08/21 13:03 History of Present Illness: HPI Narrative: Mr. Barlow is a 20-year-old gentleman with history of schizoaffective disorder presents emergency department via law enforcement for a court ordered 96-hour hold. He reports he is currently in skilled nursing due to a restraining order violation. He has difficulty telling me when his symptoms are worse and when asked to describe onset of symptoms had about 12 years of age. He currently endorses a chemical imbalance in my head that makes me want to choke myself to fix it . He otherwise denies medical complaints. No other specific changes in health, exacerbating, or alleviating factors. The patient reports that he has been off his medications for at least 2 years and when he was on the Abilify he expresses concerns that he was doing things that he could not control such as cooking a plastic bowl on a glass stove top with baking grease and then putting it on a sandwich and eating it. He was admitted to the neuropsychiatric unit for definitive treatment of those issues. He presents today reporting these been hospitalized at least 3 times with the last time being about a year ago. He reports that he gets outpatient services at [facility]. He reports that he has been on BuSpar, Vistaril and endorsed that he was supposed to be on Focalin. But he has been put on mood stabilizers/antipsychotics in the past which were effective but he is resistant due to reports of side effects. He reports he smokes about half a pack of cigarettes a day, denies alcohol, endorses marijuana occasionally denies cocaine methamphetamine or opiates reporting that his last difficulties with methamphetamine was 5 to 6 months ago. He reports he has been to rehab before and also has been in a program in [place] that he refers to his C star. He also endorses having had a DUI. He reports that he has been having voices to possibly hurt or kill himself. He is currently in skilled nursing and would get his medications if we prescribed him. He reports he has had at least 3-4 suicide attempts in the past. He denies that there have been any significant changes since earlier this year when he was here on the inpatient unit. He reports he has been staying with a friend and that now he has been kicked out and that after he gets out of skilled nursing which he reports is supposed to be prior to Dennis he is not sure what he is going to do is get a need connected to resources. We discussed trying to find an alternate mood stabilizer for him to try and he understood and agreed to proceed as is documented in his note reporting that he would think about an alternate medication. Per his 12/09/2020 [facility] inpatient psychiatric discharge summary: 96 Brief History: History of Present Illness Cresencio Barlow is a 20 year old male presented to the emergency department by police after being released from skilled nursing, per chart review, patient had been banging his head against the wall making threats of harming himself although at the time of emergency department evaluation was denying any suicidal ideation. Patient is currently denying any suicidal ideation and denying any psychiatric symptoms although he sits in front of the interviewer smiling inappropriately and occasionally laughing inappropriately and suddenly stopped answering questions when asked about past psychiatric treatments stating, I know which are trying to do to me. Patient is a difficult historian secondary to not providing any additional information after asked about past treatment for psych issues. Patient currently denies any psychotic symptoms, denies any auditory or visual destinations, denies any delusions. Patient states that he is happy, and denies any current depressive symptoms, denies any past or recent sustained low mood states. Denies any periods of irritability or anger. Denies any past or recent manic or hypomanic episodes. COLLATERAL: Jeannine Barlow, patient's mother, states that the patient lives with her and her on occasion but often times will set off on foot, sometimes without close erratically. She also reports that he will intermittently demonstrate bizarre behavior and sometimes go off the handle and destroy things in the house without provocation. She states that she is never seen him appear to be responding to internal stimuli but does report that he occasionally acts in a bizarre behavior that seems like something is going on inside of his head. She reports that sometimes that he has burst out into tears when he is drawn something on a piece of paper stating that he does not understand why no one understands that he is just drawn something that has solved all of the world's problems. He has also reportedly gone out in the middle of the night and choppe d down their mailbox states stating that it serves no purpose. Patient's mother reports ongoing concerns about acute safety given that he had stated before Dennis that he did not plan on being alive past Dennis. Hospital Course Hospital Course Cresencio presented to the emergency department with active addiction, psychosis and concerns for suicidal ideation, so he was admitted to the Neuropsychiatric unit for definitive treatment of those issues. He was resistant to treatment during the visit and a 96 hour hold went to a 21 day hold his psychosis slowly resolved during the stay. He was started on abilify and ultimately took the injection of 400 mg IM. He showed improvement and was able to contract for safety prior to discharge. During the hospitalization, patient had routine laboratory studies which were within normal limits except for few outliers. Additionally there was a general medical evaluation which was also within normal limits and revealed no new acute processes. Discharge Summary: At the time of discharge, lethality was denied and psychosis was resolving. Mood and anxiety were well managed. Patient endorsed a plan to avoid all drugs of abuse and follow-up with the aftercare recommendations of the treatment team. Patient was evaluated and deemed to be absent credible lethality, and had achieved the maximum benefit from an inpatient hospitalization, so was discharged. Meds NPU Home Medications Medication Instructions Recorded Confirmed Last Taken Type No Known Home Medications 10/08/21 10/08/21 Unknown History Allergies Allergy/AdvReac Type Severity Reaction Status Date / Time No Known Allergies Allergy Verified 10/03/21 19:18 Mental Status Exam MSE Comments: This is a slender white male, tall, thin in hospital scrubs with adequate grooming and eye contact. No abnormal movements. Cooperative with exam in no acute distress. Speech was more normal rate and volume. Mood described as okay, affect congruent. Thought process organized. Thought c ontent: Patient denied suicidal or homicidal ideation, there were no delusions reported or noted, he denied auditory or visual hallucinations but reported he had been having some of that in skilled nursing.. Attention and concentration were intact and memory was mostly reliable but none were formally tested. He was alert and oriented x3. Insight and judgment are limited, impulse control is limited. Vitals/I&O/Wt Last Vital Signs Temp 98.1 F 10/09/21 06:00 Pulse 57 L 10/09/21 06:00 Resp 18 10/09/21 06:00 BP 109/73 10/09/21 06:00 Pulse Ox 98 10/09/21 06:00 Weight last 48 hrs Weight 79.379 kg Data NPU : 10/08/21 14:28 10/08/21 14:28 A&P Assessment and plan (1) Schizoaffective disorder: Status: Acute (2) Psychotic disorder: Status: Acute Additional A&P Information This is a 20-year-old white male with a long history of addiction and psychosis who presents from a skilled nursing endorsing some psychotic symptoms but not really open to trying an antipsychotic raising concerns of whether he is trying to avoid being in skilled nursing. 1. Continue current medication. Continue to offer antipsychotic for long-term stability. 2. Continue every 15 minute checks for safety. 3. Encourage individual, group and milieu therapies. 4. Encourage sober living treatment after discharge at the highest level of care to which he is willing to commit. Involuntary Hold Information 96 Hour Hold: 96 Hour Involuntary Admission: Yes 96 Hour Hold Ending Date: 11/30/20 96 Hour Hold Ending Time: 14:38 Attestations NPU Medical Necessity Statement*: Inpatient hospitalization is medically necessary and the clinically appropriate intervention at this time. We will evaluate medications and make changes as indicated. He will be in the hospital for over 2 midnights. Likely length of stay 5 days. Coding Level of Care Code Acute Coal Chute Worker for Cait Damon Diagnoses Schizoaffective disorder F25.9 Psychotic disorder F29
[2021-10-09] MEDS: nicotine 2 mg Gum BUCCAL ×3 (11:03→21:25)
[2021-10-09] MEDS: BuSPIRONE 10 mg Tablet 15 MG PO ×2 (13:49→17:34)
[2021-10-09 14:00] VITALS: BP 129/79; PULSE 90; RESP 17; TEMP 36.3; O2SAT 98
[2021-10-09 20:43] VITALS: BP 145/77; PULSE 62; RESP 16; TEMP 36.7; O2SAT 99
[2021-10-09] MEDS: hyDROXYzine 25 mg Capsule 50 MG PO (20:45)
[2021-10-09] MEDS: trazodone 50 mg Tablet PO (20:45)
[2021-10-10] MEDS: nicotine 2 mg Gum BUCCAL ×3 (05:53→21:43)
[2021-10-10 06:00] VITALS: BP 148/81; PULSE 66; RESP 17; TEMP 36.6; O2SAT 98; BMI 22.4
[2021-10-10] MEDS: BuSPIRONE 10 mg Tablet 15 MG PO ×2 (09:23→17:22)
[2021-10-10 14:00] VITALS: BP 131/65; PULSE 62; RESP 16; TEMP 37; O2SAT 98
--- NOTE | 2021-10-10 14:22 | W.PM.NPUPNS ---
Subjective NPU Subjective: Interval history: Patient presents today reporting that things are going okay. He reports that things are bad for the moment there and he was really graduated which I got in retirement. He reports he is not really clear what is going to happen next. We discussed working with the treatment team starting tomorrow and figuring out if we can work on some alternatives for after he is released from retirement which he reports is supposed to be 10/20/2021. We discussed him considering an antipsychotic but he is very hesitant reporting that Abilify made him feel kind of funny. We agree with continuing the discussion. Mental Status Exam MSE Comments: This is a slender white male, tall, thin in hospital scrubs with adequate grooming and eye contact. No abnormal movements. Cooperative with exam in no acute distress. Speech was more normal rate and volume. Mood described as okay, affect congruent, but. Thought process organized. Thought content: Patient denied suicidal or homicidal ideation, there were no delusions reported or noted, he denied auditory or visual hallucinations but reported he had been having some of that in retirement. Attention and concentration were intact and memory was mostly reliable but none were formally tested. He was alert and oriented x3. Insight and judgment are limited, impulse control is limited. Vitals/I&O/Wt Last Vital Signs Temp 98.6 F 10/10/21 14:00 Pulse 62 10/10/21 14:00 Resp 16 10/10/21 14:00 BP 131/65 10/10/21 14:00 Pulse Ox 98 10/10/21 14:00 Weight last 48 hrs Weight 79.379 kg Data NPU : 10/08/21 14:28 10/08/21 14:28 A&P Additional A&P Information (1) Schizoaffective disorder: (2) Psychotic disorder: Additional A&P Information This is a 20-year-old white male with a long history of addiction and psychosis who presents from a retirement endorsing some psychotic symptoms but not really open to trying an antipsychotic raising concerns of whether he is trying to avoid being in retirement. 1. Continue current medication. Continue to offer antipsychotic for long-term stability. 2. Continue every 15 minute checks for safety. 3. Encourage individual, group and milieu therapies. 4. Encourage sober living treatment after discharge at the highest level of care to which he is willing to commit. Involuntary Hold Information 96 Hour Hold: 96 Hour Involuntary Admission: Yes 96 Hour Hold Ending Date: 11/30/20 96 Hour Hold Ending Time: 14:38 Attestations NPU Medical Necessity Statement*: Inpatient hospitalization is medically necessary and the clinically appropriate intervention at this time. We will evaluate medications and make changes as indicated. Likely length of stay 3-5 days. Coding Level of Care Code Acute Psychology Technician for Cait Damon
[2021-10-10 20:42] VITALS: BP 128/72; PULSE 66; RESP 15; TEMP 36.6; O2SAT 99
[2021-10-10] MEDS: hyDROXYzine 25 mg Capsule 50 MG PO (22:33)
[2021-10-10] MEDS: OLANZapine 5 mg ODT PO (22:34)
--- NOTE | 2021-10-10 23:03 | PC.NURSE ---
Vistaril 50mg PO and Zyprexa 5mg SL / PO given for anxiety / agitation. Medication had good results, Patient much calmer and no longer agitated.
[2021-10-11 06:00] VITALS: BP 95/56; PULSE 90; RESP 17; TEMP 36.6; O2SAT 96
[2021-10-11] MEDS: BuSPIRONE 10 mg Tablet 15 MG PO ×2 (09:33→17:32)
[2021-10-11] MEDS: nicotine 2 mg Gum BUCCAL ×3 (09:34→23:51)
--- NOTE | 2021-10-11 10:07 | PC.OT ---
OT EVALUATION ATTEMPTED; PATIENT STATES, I DIDN'T GET MUCH SLEEP; COME BACK LATER
--- NOTE | 2021-10-11 13:02 | NPU.GN ---
[facility] NeuroPsych Unit Group Topic:Ingrid Barrel / Discussion General Mood of Group: Cresencio did attend and participate in group. He was social with others and this production underwriter. His demeanor was ok . Cresencio also had this production underwriter aide him in filling out the [facility] New Patient Paperwork.
[2021-10-11 14:00] VITALS: BP 103/62; PULSE 70; RESP 16; TEMP 36.2; O2SAT 96
--- NOTE | 2021-10-11 17:31 | P.NPUPN_ITS ---
Subjective NPU Subjective: Interval history: Patient presents today reporting that he is doing okay. He reports has not spoken with the social work team yet but he is open to the idea. He could not really articulate what happened but reports that he has been at his parents home and there was a protective order there so that he can stay there but he had some issues of self control and that led to the police coming in him ultimately ending up in residential. He reported still considering the antipsychotic. We discussed the writing for Invega 6 mg p.o. every morning for the morning and him considering taking it when they offer it.. Mental Status Exam MSE Comments: This is a slender white male, tall, thin in hospital scrubs with adequate grooming and eye contact. No abnormal movements. Cooperative with exam in no acute distress. Speech was more normal rate and volume. Mood described as okay, affect congruent, but odd. Thought process organized. Thought content: Patient denied suicidal or homicidal ideation, there were no delusions reported or noted, he denied auditory or visual hallucinations but reported he had been having some of that in residential. Attention and concentration were intact and memory was mostly reliable but none were formally tested. He was alert and oriented x3. Insight and judgment are limited, impulse control is limited. Vitals/I&O/Wt Last Vital Signs Temp 97.2 F L 10/11/21 14:00 Pulse 70 10/11/21 14:00 Resp 16 10/11/21 14:00 BP 103/62 10/11/21 14:00 Pulse Ox 96 10/11/21 14:00 Data NPU : 10/08/21 14:28 10/08/21 14:28 A&P Additional A&P Information (1) Schizoaffective disorder: (2) Psychotic disorder: Additional A&P Information This is a 20-year-old white male with a long history of addiction and psychosis who presents from a residential endorsing some psychotic symptoms but not really open to trying an antipsychotic raising concerns of whether he is trying to avoid being in residential. 1. Continue current medication. Offer Invega 6 mg p.o. every morning in the morning. 2. Continue every 15 minute checks for safety. 3. Encourage individual, group and milieu therapies. 4. Encourage sober living treatment after discharge at the highest level of care to which he is willing to commit. Involuntary Hold Information 96 Hour Hold: 96 Hour Involuntary Admission: Yes 96 Hour Hold Ending Date: 11/30/20 96 Hour Hold Ending Time: 14:38 Attestations NPU Medical Necessity Statement*: Inpatient hospitalization is medically necessary and the clinically appropriate intervention at this time. We will evaluate medications and make changes as indicated. Likely length of stay 2-4 days. Coding Level of Care Code Acute Charge Operator for Cait Damon
[2021-10-11 21:37] VITALS: BP 108/69; PULSE 73; RESP 15; TEMP 36.6; O2SAT 95
[2021-10-12 06:16] VITALS: BP 95/61; PULSE 80; RESP 18; TEMP 36.8; O2SAT 99
[2021-10-12] MEDS: nicotine 2 mg Gum BUCCAL ×2 (10:04→16:59)
[2021-10-12] MEDS: paliperidone ER 6 mg Tablet PO (12:42)
--- NOTE | 2021-10-12 13:21 | NPU.GN ---
[facility] Topic: Ingrid Drake General Mood of Group: Cresencio did attend group and participated today. He seemed to have a good mind set and was is a decent mood.
[2021-10-12 14:00] VITALS: BP 100/57; PULSE 75; RESP 18; TEMP 36.5; O2SAT 96
--- NOTE | 2021-10-12 19:18 | P.NPUPN_ITS ---
Subjective NPU Subjective: Interval history: Patient presents today denying any problems thus far with the Invega. He did report that the BuSpar felt like it was too high of a dose and so we discussed the risk benefits and alternatives of decreasing it to 10 mg p.o. twice daily and he understood and agreed to proceed as is documented in this note. He reports he has thought that maybe his parents may in the PSA and he might be able to go back to their place but that he would work with the social workers talk with and consider what options might be available after he leaves the longterm after discharge here. Mental Status Exam MSE Comments: This is a slender white male, tall, thin in hospital scrubs with adequate grooming and eye contact. No abnormal movements. Cooperative with exam in no acute distress. Speech was more normal rate and volume. Mood described as maybe a little better, affect congruent, but odd. Thought process organized. Thought content: Patient denied suicidal or homicidal ideation, there were no delusions reported or noted, he denied auditory or visual hallucinations but reported he had been having some of that in longterm. Attention and concentration were intact and memory was mostly reliable but none were formally tested. He was alert and oriented x3. Insight and judgment are limited, impulse control is limited. Vitals/I&O/Wt Last Vital Signs Temp 97.7 F 10/12/21 14:00 Pulse 75 10/12/21 14:00 Resp 18 10/12/21 14:00 BP 100/57 10/12/21 14:00 Pulse Ox 96 10/12/21 14:00 Data NPU : 10/08/21 14:28 10/08/21 14:28 A&P Additional A&P Information (1) Schizoaffective disorder: (2) Psychotic disorder: Additional A&P Information This is a 20-year-old white male with a long history of addiction and psychosis who presents from a longterm endorsing some psychotic symptoms but not really open to trying an antipsychotic raising concerns of whether he is trying to avoid being in longterm. 1. Continue current medication. Started Invega 6 mg p.o. every morning and decreased BuSpar to 10 mg p.o. twice daily. 2. Continue every 15 minute checks for safety. 3. Encourage individual, group and milieu therapies. 4. Encourage sober living treatment after discharge at the highest level of care to which he is willing to commit. Involuntary Hold Information 96 Hour Hold: 96 Hour Involuntary Admission: Yes 96 Hour Hold Ending Date: 11/30/20 96 Hour Hold Ending Time: 14:38 Attestations NPU Medical Necessity Statement*: Inpatient hospitalization is medically necessary and the clinically appropriate intervention at this time. We will evaluate medications and make changes as indicated. Likely length of stay 1-3 days. Coding Level of Care Code Acute Byproducts Pump Operator for Cait Damon
[2021-10-12 19:52] VITALS: RESP 15
[2021-10-13] MEDS: nicotine 2 mg Gum BUCCAL ×4 (00:58→21:54)
[2021-10-13 06:00] VITALS: RESP 15
[2021-10-13] MEDS: paliperidone ER 6 mg Tablet PO (08:30)
[2021-10-13] MEDS: BuSPIRONE 10 mg Tablet PO (08:30)
--- NOTE | 2021-10-13 11:33 | NPU.GN ---
[facility] Topic:Checkers General Mood of Group: Brandt did not attend group today.
--- NOTE | 2021-10-13 13:14 | P.NPUPN_ITS ---
Subjective NPU Subjective: Interval history: Patient presents today reporting that he is feeling groggy and really feels like his BuSpar that is causing him to feel that way. Discussed the risk-benefit alternatives decreasing discontinuing the BuSpar and adding propranolol and he agreed to discontinue BuSpar and understood and agreed to proceed as is documented in his note. He continues to be unsure about what happened discharge to penit[facility]iary but agreed that he would work with the treatment team for a post penitentiary plan. He denied any problems with the Invega. Mental Status Exam MSE Comments: This is a slender white male, tall, thin in hospital scrubs with adequate grooming and eye contact. No abnormal movements. Cooperative with exam in no acute distress. Speech was more normal rate and volume. Mood described as maybe a little better, but anxious, affect congruent, but odd. Thought process organized. Thought content: Patient denied suicidal or homicidal ideation, there were no delusions reported or noted, he denied auditory or visual hallucinations but reported he had been having some of that in penitentiary. Attention and concentration were intact and memory was mostly reliable but none were formally tested. He was alert and oriented x3. Insight and judgment are limited, impulse control is limited. Vitals/I&O/Wt Last Vital Signs Temp 97.7 F 10/12/21 14:00 Pulse 75 10/12/21 14:00 Resp 15 10/13/21 06:00 BP 100/57 10/12/21 14:00 Pulse Ox 96 10/12/21 14:00 Data NPU : 10/08/21 14:28 10/08/21 14:28 A&P Additional A&P Information (1) Schizoaffective disorder: (2) Psychotic disorder: Additional A&P Information This is a 20-year-old white male with a long history of addiction and psychosis who presents from a penitentiary endorsing some psychotic symptoms but not really open to trying an antipsychotic raising concerns of whether he is trying to avoid being in penitentiary. 1. Continue current medication. Started Invega 6 mg p.o. every morning and continued BuSpar to 10 mg p.o. twice daily. And start propranolol 20 mg p.o. 3 times daily as needed for anxiety 2. Continue every 15 minute checks for safety. 3. Encourage individual, group and milieu therapies. 4. Encourage sober living treatment after discharge at the highest level of care to which he is willing to commit. 5. Determine what the actual Group Home arrangement it upon his return. Involuntary Hold Information 96 Hour Hold: 96 Hour Involuntary Admission: Yes 96 Hour Hold Ending Date: 11/30/20 96 Hour Hold Ending Time: 14:38 Attestations NPU Medical Necessity Statement*: Inpatient hospitalization is medically necessary and the clinically appropriate intervention at this time. We will evaluate medications and make changes as indicated. Likely length of stay 1-3 days. Coding Level of Care Code Acute Bath Mix Operator for Cait Damon
[2021-10-13 19:41] VITALS: BP 119/68; PULSE 80; RESP 16; O2SAT 98
[2021-10-14 06:00] VITALS: BP 129/89; PULSE 79; RESP 16; O2SAT 96
[2021-10-14] MEDS: nicotine 2 mg Gum BUCCAL ×2 (08:38→16:58)
--- NOTE | 2021-10-14 08:45 | PC.NURSE ---
med refusal Pt refused morning dose of Buspar, pt states that he was experiencing site effects of anger when taking this med. Will continue to monitor.
[2021-10-14] MEDS: paliperidone ER 6 mg Tablet PO (09:03)
--- NOTE | 2021-10-14 13:34 | W.PM.NPUPNS ---
Subjective NPU Subjective: Interval history: He said just about 1 hour before we met that he had a strange episode where he suddenly felt like throwing a chair through the window for no reason. He felt a sense of unreality and that he should kill himself. He said that it was probably because of the BuSpar and Invega combination. However, he then said that he did not take the BuSpar this morning. Evidently that was discontinued yesterday. He has been on the Invega for 6 days and does not feel that it has done anything for him. He continues to be suicidal episodically. He says that he has a court date . He said that he is in intermediate awaiting trial because he violated the restraining order of his parents had put in place. He said that he was going to kill them but he says that he did not mean it. Evidently they took it seriously and put on the restraining order. He said that he has been in intermediate 18 or 19 times. He said that he had stuttering and anxiety when he was in grade school. He finally worked himself out of it in seventh or eighth grade. He said that he was tried on many different medications including several stimulants but Focalin XR is the only thing that worked. He said that Effexor made him hallucinate. He was on Abilify maintain and that also had a very bad reaction. He started using drugs at age 15, starting with marijuana. He says that he knows that the drugs have been bad for him. 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 He says that he has been clean from marijuana for about 3 months. He has intent is to stay off of those drugs. He requested changing with the Invega to something else and he agreed on Latuda. He does not think that he has ever taken that. He told me the same story that he told Dr. Sue about in the night putting a plastic ball on the stove and making a sandwich out of it. He said he Wisked that with the wisk. When asked initially if he was on drugs when he did that he said no. I later said that to do something like that without being on drugs certainly met you needed an antipsychotic. Then he said he was sure that he did drugs when he did that. Medications: Reviewed: Yes Mental Status Exam MSE Comments: This is a slender white male, tall, thin in hospital scrubs with adequate grooming and eye contact. No abnormal movements. Cooperative with exam in no acute distress. Speech was more normal rate and volume. Mood descibed as depressed and suicidal just an hour ago, but anxious, affect congruent, but odd. Thought process organized. Thought content: Patient reported suicidal moments ago okay or homicidal ideation, there were no delusions reported or noted, he denied auditory or visual hallucinations but reported he had been having some of that in intermediate. Attention and concentration were intact and memory was mostly reliable but none were formally tested. He was alert and oriented x3. Insight and judgment are limited, impulse control is limited. Cognition: Patient Appearance: Appropriate Level of Consciousness: Awake, Alert and Follows Commands Patient Cognition Impaired: Yes Ability to Follow Directions: Good Patient Orientation (long list): Person, Place, Time and Name Comprehension Ability: No Impairment Hallucination Type: None Delusion Description: Not Present Thought Process: Appropriate Affect: Affect Description: Appropriate Depressive Symptoms: Back Pain, Changes in Appetite, Crying Spells, Difficulty Concentrating, Difficulty Sleeping, Difficulty Making Decisions, Feelings of Guilt, Feelings of Worthlessness, Hopelessness, Insomnia, Increased Anxiety, Increased Fatigue, Increased Irritability, Isolating Oneself From Friends and Family, Loss of Energy, Loss of Interest in Activities, Low Self Esteem, Reduced Sex Drive, Recurrent Thoughts of or Suicide, Unexplained Headaches, Unexplained Stomach Pain and Unhappiness Behavior: Patient Behavior: Appropriate Speech Pattern: Appropriate and Clear Vitals/I&O/Wt Last Vital Signs Temp 97.7 F 10/12/21 14:00 Pulse 79 10/14/21 06:00 Resp 16 10/14/21 06:00 BP 129/89 10/14/21 06:00 Pulse Ox 96 10/14/21 06:00 Data NPU : 10/08/21 14:28 10/08/21 14:28 A&P Assessment and plan (1) Schizoaffective disorder: Status: Acute (2) Psychotic disorder: Status: Acute Additional A&P Information (1) Schizoaffective disorder: (2) Psychotic disorder: Additional A&P Information This is a 20-year-old white male with a long history of addiction and psychosis who presents from a intermediate endorsing some psychotic symptoms but not really open to trying an antipsychotic raising concerns of whether he is trying to avoid being in intermediate. 1. Continue current medication. propranolol 20 mg p.o. 3 times daily as needed for anxiety. d/c Invega. Latuda 20 mg. 2. Continue every 15 minute checks for safety. 3. Encourage individual, group and milieu therapies. 4. Encourage sober living treatment after discharge at the highest level of care to which he is willing to commit. 5. Determine what the actual Shelter arrangement it upon his return. Involuntary Hold Information 96 Hour Hold: 96 Hour Involuntary Admission: Yes 96 Hour Hold Ending Date: 11/30/20 96 Hour Hold Ending Time: 14:38 Attestations NPU Medical Necessity Statement*: Inpatient hospitalization is medically necessary and the clinically appropriate intervention at this time. We will initiate medications and make changes as indicated. Coding Level of Care Code Acute Grain Weigher for Cait Damon Diagnoses Schizoaffective disorder F25.9 Psychotic disorder F29
[2021-10-14 13:41] VITALS: BP 125/74; PULSE 88; RESP 17; TEMP 36.9; O2SAT 98
[2021-10-14] MEDS: lurasidone 20 mg Tablet PO (16:35)
[2021-10-14 20:28] VITALS: BP 132/73; PULSE 69; RESP 18; O2SAT 99
[2021-10-15 06:00] VITALS: BP 111/66; PULSE 62; RESP 17; O2SAT 97
[2021-10-15] MEDS: nicotine 2 mg Gum BUCCAL ×3 (06:47→20:53)
--- NOTE | 2021-10-15 07:31 | W.PM.NPUPNS ---
Subjective NPU Subjective: Interval history: He came out of his room to tell me that the Latuda was not really helped him. He said that when he took it he had extra salivation which indicated to him that he needed it. He said that he was able to focus much better after he took it last night. He was able to sit down and write and concentrate on something for several hours which is different than his normal. He said that he slept great last night. I offered an increase the Latuda and he was very happy about that. Mental Status Exam MSE Comments: This is a slender white male, tall, thin in hospital scrubs with adequate grooming and eye contact. No abnormal movements. Cooperative with exam in no acute distress. Speech was more normal rate and volume. Mood good. Affect is euthymic.. Thought process organized. Thought content: Patient denies suicidal or homicidal ideation, there were no delusions reported or noted, he denied auditory or visual hallucinations but reported he had been having some of that in penitentiary. Attention and concentration were intact and memory was mostly reliable but none were formally tested. He was alert and oriented x3. Insight and judgment are limited, impulse control is limited. Cognition: Patient Appearance: Appropriate Level of Consciousness: Awake, Alert and Follows Commands Patient Cognition Impaired: Yes Ability to Follow Directions: Good Patient Orientation (long list): Person, Place, Time and Name Comprehension Ability: No Impairment Hallucination Type: None Delusion Description: Not Present Thought Process: Appropriate Affect: Affect Description: Appropriate Depressive Symptoms: Back Pain, Changes in Appetite, Crying Spells, Difficulty Concentrating, Difficulty Sleeping, Difficulty Making Decisions, Feelings of Guilt, Feelings of Worthlessness, Hopelessness, Insomnia, Increased Anxiety, Increased Fatigue, Increased Irritability, Isolating Oneself From Friends and Family, Loss of Energy, Loss of Interest in Activities, Low Self Esteem, Reduced Sex Drive, Recurrent Thoughts of or Suicide, Unexplained Headaches, Unexplained Stomach Pain and Unhappiness Behavior: Patient Behavior: Appropriate Speech Pattern: Appropriate Vitals/I&O/Wt Last Vital Signs Temp 98.4 F 10/14/21 13:41 Pulse 62 10/15/21 06:00 Resp 17 10/15/21 06:00 BP 111/66 10/15/21 06:00 Pulse Ox 97 10/15/21 06:00 Data NPU : 10/08/21 14:28 10/08/21 14:28 A&P Assessment and plan (1) Schizoaffective disorder: Status: Acute (2) Psychotic disorder: Status: Acute Additional A&P Information (1) Schizoaffective disorder: (2) Psychotic disorder: Additional A&P Information This is a 20-year-old white male with a long history of addiction and psychosis who presents from a penitentiary endorsing some psychotic symptoms but not really open to trying an antipsychotic raising concerns of whether he is trying to avoid being in penitentiary. 1. Continue current medication. propranolol 20 mg p.o. 3 times daily as needed for anxiety. d/c Invega. Increase Latuda 40 mg. 2. Continue every 15 minute checks for safety. 3. Encourage individual, group and milieu therapies. 4. Encourage sober living treatment after discharge at the highest level of care to which he is willing to commit. 5. Determine what the actual Group Home arrangement it upon his return. Involuntary Hold Information 96 Hour Hold: 96 Hour Involuntary Admission: Yes 96 Hour Hold Ending Date: 11/30/20 96 Hour Hold Ending Time: 14:38 Attestations NPU Medical Necessity Statement*: Inpatient hospitalization is medically necessary and the clinically appropriate intervention at this time. We will initiate medications and make changes as indicated. Coding Level of Care Code Acute Larriman for Cait Damon Diagnoses Schizoaffective disorder F25.9 Psychotic disorder F29
[2021-10-15] MEDS: propranolol 20 mg Tablet PO ×2 (09:49→20:54)
[2021-10-15 14:00] VITALS: BP 126/71; PULSE 76; RESP 18; TEMP 37; O2SAT 98
[2021-10-15] MEDS: nicotine 21 mg Patch 1 PATCH TRANSDERMA (14:02)
[2021-10-15] MEDS: lurasidone 20 mg Tablet 40 MG PO (17:01)
[2021-10-15 20:44] VITALS: BP 149/87; PULSE 76; RESP 16; O2SAT 99
[2021-10-16] MEDS: nicotine 2 mg Gum BUCCAL ×2 (04:47→19:56)
[2021-10-16 06:00] VITALS: BP 89/53; PULSE 72; RESP 15; O2SAT 99
--- NOTE | 2021-10-16 10:01 | P.NPUPN_ITS ---
Subjective NPU Subjective: Interval history: He says that he felt fine after the Latuda 40 mg last night. He was more focused. He thought it might of been a little better than the 20 mg. However this morning he is sleepy. His eyes feel heavy. He is still in bed at 10 AM. He agrees that probably we went to 40 mg a little bit too quickly and would like to reduce down to 20 mg. He says that he is feeling better. He was asked if he had any suicidal thoughts for the last couple of days he said a little, not really . He said that he felt ready to go back to the group home. We will see what transportation arrangements can be made. Yesterday I was told that they may or may not be able to come and get him over the weekend. Mental Status Exam MSE Comments: This is a slender white male, tall, thin in hospital scrubs with adequate grooming and eye contact. Is still in bed at 10 AM. No abnormal movements. Psychomotor activity is somewhat decreased. Appropriate for somebody who is asleep and was just woken up. Cooperative with exam in no acute distress. Speech was more normal rate and volume. Mood good. Affect is euthymic.. Thought process organized. Thought content: Patient denies suicidal or homicidal ideation but has had some thoughts of suicide recently. There were no delusions reported or noted, he denied auditory or visual hallucinations but reported he had been having some of that in group home. Attention and concentration were intact and memory was mostly reliable but none were formally tested. He was alert and oriented x3. Insight and judgment are limited, impulse control is limited. Cognition: Patient Appearance: Appropriate Level of Consciousness: Awake, Alert and Follows Commands Patient Cognition Impaired: Yes Ability to Follow Directions: Good Patient Orientation (long list): Person, Place, Time, Name, Age and Birthday Comprehension Ability: No Impairment Hallucination Type: None Delusion Description: Not Present Thought Process: Appropriate Affect: Affect Description: Calm Depressive Symptoms: Back Pain, Changes in Appetite, Crying Spells, Difficulty Concentrating, Difficulty Sleeping, Difficulty Making Decisions, Feelings of Guilt, Feelings of Worthlessness, Hopelessness, Insomnia, Increased Anxiety, Increased Fatigue, Increased Irritability, Isolating Oneself From Friends and Family, Loss of Energy, Loss of Interest in Activities, Low Self Esteem, Reduced Sex Drive, Recurrent Thoughts of or Suicide, Unexplained Headaches, Unexplained Stomach Pain and Unhappiness Behavior: Patient Behavior: Cooperative Speech Pattern: Clear Vitals/I&O/Wt Last Vital Signs Temp 98.6 F 10/15/21 14:00 Pulse 72 10/16/21 06:00 Resp 15 10/16/21 06:00 BP 89/53 10/16/21 06:00 Pulse Ox 99 10/16/21 06:00 Data NPU : 10/08/21 14:28 10/08/21 14:28 A&P Assessment and plan (1) Schizoaffective disorder: Status: Acute (2) Psychotic disorder: Status: Acute Additional A&P Information (1) Schizoaffective disorder: (2) Psychotic disorder: Additional A&P Information This is a 20-year-old white male with a long history of addiction and psychosis who presents from a group home endorsing some psychotic symptoms but not really open to trying an antipsychotic raising concerns of whether he is trying to avoid being in group home. 1. Continue current medication. propranolol 20 mg p.o. 3 times daily as needed for anxiety. Decrease Latuda back to 20 mg. 2. Continue every 15 minute checks for safety. 3. Encourage individual, group and milieu therapies. 4. Encourage sober living treatment after discharge at the highest level of care to which he is willing to commit. 5. Determine what the actual Detention arrangement it upon his return. Involuntary Hold Information 96 Hour Hold: 96 Hour Involuntary Admission: Yes 96 Hour Hold Ending Date: 11/30/20 96 Hour Hold Ending Time: 14:38 Attestations NPU Medical Necessity Statement*: Inpatient hospitalization is medically necessary and the clinically appropriate intervention at this time. We will initiate medications and make changes as indicated. Coding Level of Care Code Acute Sack Department Supervisor for Cait Damon Diagnoses Schizoaffective disorder F25.9 Psychotic disorder F29
[2021-10-16] MEDS: nicotine 21 mg Patch 1 PATCH TRANSDERMA (11:25)
[2021-10-16 13:55] VITALS: PULSE 78; RESP 16; TEMP 36.8; O2SAT 99
--- NOTE | 2021-10-16 14:57 | PC.NURSE ---
patient up with nurse to walk. during walk patient O2 Sat dropped to 89%, heart rate 116. Patient on 4L during the walk. after the walk, O2 up to 94% and heart rate 101. Patient denies chest pain or SOB.
[2021-10-16 16:26] VITALS: BP 160/62; TEMP 36.8
[2021-10-16] MEDS: lurasidone 20 mg Tablet PO (17:07)
[2021-10-16] MEDS: propranolol 20 mg Tablet PO (19:56)
[2021-10-16] MEDS: hyDROXYzine 25 mg Capsule 50 MG PO (20:59)
--- NOTE | 2021-10-16 20:59 | PC.NURSE ---
patient presented to desk, very flat affect, stated, I need something else for anxiety. Rated 7/10 scale. Medicated with Vistaril 50mg per PRN orders.
[2021-10-16] MEDS: OLANZapine 5 mg ODT PO (21:53)
[2021-10-17 06:00] VITALS: BP 106/63; PULSE 53; RESP 18; O2SAT 98; BMI 22.4
--- NOTE | 2021-10-17 08:01 | W.PM.NPUDCS ---
Diagnoses at Discharge Discharge Diagnosis (1) Schizoaffective disorder: Status: Acute (2) Psychotic disorder: Status: Acute Reason for Visit Reason for Visit: SI Brief History: History of Present Illness Cresencio Barlow is a 20 year old male who presented to the emergency department with the following report: Chief Complaint: Psychiatric Symptoms Stated Complaint: 96 HOUR HOLD Time Seen by Provider: 10/08/21 13:03 History of Present Illness: HPI Narrative: Mr. Barlow is a 20-year-old gentleman with history of schizoaffective disorder presents emergency department via law enforcement for a court ordered 96-hour hold. He reports he is currently in group home due to a restraining order violation. He has difficulty telling me when his symptoms are worse and when asked to describe onset of symptoms had about 12 years of age. He currently endorses a chemical imbalance in my head that makes me want to choke myself to fix it . He otherwise denies medical complaints. No other specific changes in health, exacerbating, or alleviating factors. The patient reports that he has been off his medications for at least 2 years and when he was on the Abilify he expresses concerns that he was doing things that he could not control such as cooking a plastic bowl on a glass stove top with baking grease and then putting it on a sandwich and eating it. He was admitted to the neuropsychiatric unit for definitive treatment of those issues. He presents today reporting these been hospitalized at least 3 times with the last time being about a year ago. He reports that he gets outpatient services at [facility]. He reports that he has been on BuSpar, Vistaril and endorsed that he was supposed to be on Focalin. But he has been put on mood stabilizers/antipsychotics in the past which were effective but he is resistant due to reports of side effects. He reports he smokes about half a pack of cigarettes a day, denies alcohol, endorses marijuana occasionally denies cocaine methamphetamine or opiates reporting that his last difficulties with methamphetamine was 5 to 6 months ago. He reports he has been to rehab before and also has been in a program in [place] that he refers to his C star. He also endorses having had a DUI. He reports that he has been having voices to possibly hurt or kill himself. He is currently in group home and would get his medications if we prescribed him. He reports he has had at least 3-4 suicide attempts in the past. He denies that there have been any significant changes since earlier this year when he was here on the inpatient unit. He reports he has been staying with a friend and that now he has been kicked out and that after he gets out of group home which he reports is supposed to be prior to [place] he is not sure what he is going to do is get a need connected to resources. We discussed trying to find an alternate mood stabilizer for him to try and he understood and agreed to proceed as is documented in his note reporting that he would think about an alternate medication. Per his 12/09/2020 [facility] inpatient psychiatric discharge summary: 96 Brief History: History of Present Illness Cresencio Barlow is a 20 year old male presented to the emergency department by police after being released from group home, per chart review, patient had been banging his head against the wall making threats of harming himself although at the time of emergency department evaluation was denying any suicidal ideation. Patient is currently denying any suicidal ideation and denying any psychiatric symptoms although he sits in front of the interviewer smiling inappropriately and occasionally laughing inappropriately and suddenly stopped answering questions when asked about past psychiatric treatments stating, I know which are trying to do to me. Patient is a difficult historian secondary to not providing any additional information after asked about past treatment for psych issues. Patient currently denies any psychotic symptoms, denies any auditory or visual destinations, denies any delusions. Patient states that he is happy, and denies any current depressive symptoms, denies any past or recent sustained low mood states. Denies any periods of irritability or anger. Denies any past or recent manic or hypomanic episodes. COLLATERAL: Jeannine Barlow, patient's mother, states that the patient lives with her and her on occasion but often times will set off on foot, sometimes without close erratically. She also reports that he will intermittently demonstrate bizarre behavior and sometimes go off the handle and destroy things in the house without provocation. She states that she is never seen him appear to be responding to internal stimuli but does report that he occasionally acts in a bizarre behavior that seems like something is going on inside of his head. She reports that sometimes that he has burst out into tears when he is drawn something on a piece of paper stating that he does not understand why no one understands that he is just drawn something that has solved all of the world's problems. He has also reportedly gone out in the middle of the night and chopped down their mailbox states stating that it serves no purpose. Patient's mother reports ongoing concerns about acute safety given that he had stated before [place] that he did not plan on being alive past [place]. Hospital Course Hospital Course Cresencio presented to the emergency department with active addiction, psychosis and concerns for suicidal ideation, so he was admitted to the Neuropsychiatric unit for definitive treatment of those issues. He was resistant to treatment during the visit and a 96 hour hold went to a 21 day hold his psychosis slowly resolved during the stay. He was started on abilify and ultimately took the injection of 400 mg IM. He showed improvement and was able to contract for safety prior to discharge. During the hospitalization, patient had routine laboratory studies which were within normal limits except for few outliers. Additionally there was a general medical evaluation which was also within normal limits and revealed no new acute processes. Discharge Summary: At the time of discharge, lethality was denied and psychosis was resolving. Mood and anxiety were well managed. Patient endorsed a plan to avoid all drugs of abuse and follow-up with the aftercare recommendations of the treatment team. Patient was evaluated and deemed to be absent credible lethality, and had achieved the maximum benefit from an inpatient hospitalization, so was discharged. Hospital Course Hospital Course He slowly acclimated to the individual, group and milieu therapies provided. He initially refused medications. He said that he had been on many different medications and nothing had worked except for Focalin XR. He said that Abilify had made him feel funny and refused to consider an antipsychotic. He eventually decided to try Latuda 20 mg and said that that helped him focus and he felt better. 20 mg seemed to make him a little sedated although he continued to feel that it helped him be focused and helped his mood. It was tried at 20 mg the next night and he was told that he would be going back to group home the next morning. He had a very difficult night and was still in a bad mood in the morning. It is assumed that this is a reaction to going back to group home and will not change despite anything. He also was in a bad mood and said that the Latuda was causing it and did not want to take it anymore. He was able to contract for safety outside hospital prior to discharge. During the hospitalization, patient had routine laboratory studies which were within normal limits except for few outliers. Additionally there was a general medical evaluation which was also within normal limits and revealed no new acute processes. Discharge Summary: At the time of discharge, lethality was denied. Mood and anxiety were well managed. Patient endorsed a plan to follow-up with the aftercare recommendations of the treatment team. Patient was evaluated and deemed to be absent credible lethality, and had achieved the maximum benefit from an inpatient hospitalization, so was discharged. Involuntary Hold Information 96 Hour Hold: 96 Hour Involuntary Admission: Yes 96 Hour Hold Ending Date: 11/30/20 96 Hour Hold Ending Time: 14:38 Mental Status Exam MSE Comments: his is a slender white male, tall, thin in hospital scrubs with adequate grooming and eye contact. No abnormal movements. Cooperative with exam in no acute distress. Speech was more normal rate and volume. Mood irritable, affect angry. Thought process organized. Thought content: Patient denied suicidal or homicidal ideation, there were no delusions reported or noted, he denied auditory or visual hallucinations. Attention and concentration were intact and memory was mostly reliable but none were formally tested. He was alert and oriented x3. Insight and judgment are limited, impulse control is limited. Discharge Data Vitals: Last Vital Signs Temp 98.3 F 10/16/21 16:26 Pulse 53 L 10/17/21 06:00 Resp 18 10/17/21 06:00 BP 106/63 10/17/21 06:00 Pulse Ox 98 10/17/21 06:00 Discharge Plan Discharge Patient Disposition: Home Condition: Stable Prescriptions: New Latuda 20 mg Tablet 20 mg PO 1700 30 Days Qty: 30 RF: 1 No Action No Known Home Medications RF: 0 Discharge Orders: Discharge Order (Routine); Ordered 10/17/21 Ordered By: Francisco Gaffney Referrals: [facility] [Other] - 10/20/21 (Please call to inquire about admission. This is a men's fdc that can provide temporary fdc, counseling, and job assistance. ) [facility] [Outside] - 10/20/21 (Call to inquire about admission. You will be required to get a back ground check at the local police station before admission. ) Discharge Diet: As Directed and Regular Discharge Activity: Resume usual activity Patient Instructions: Opioid Safety Discharge Attestations NPU Time Spent in Discharge Care*: less than 30 min Specific Discharge Activities: Specific discharge activities: educating patient, documenting/other paperwork and evaluating patient/reviewing data Coding Level of Care Code Acute Chg FW CT note Diagnoses Schizoaffective disorder F25.9 Psychotic disorder F29
[2021-10-17 08:07] VITALS: BP 106/63; PULSE 53; RESP 18; O2SAT 98
== END 2021-10-17 09:31 | disposition home or self-care (01) | DRG 885 ==
LOC: ER 15:12 → NP 16:14
PROVIDERS: Admitting Provider Psychiatry & Neurology Psychiatry; Emergency Provider Emergency Medicine; Visit Provider Psychiatry & Neurology Psychiatry
DX: F25.9 Schizoaffective disorder, unspecified (principal); R45.851 Suicidal ideations; F17.210 Nicotine dependence, cigarettes, uncomplicated; F12.11 Cannabis abuse, in remission; F15.11 Other stimulant abuse, in remission; Z91.51 Personal history of suicidal behavior
CPT/HCPCS: 36415; 80053; 80306; 80307; 84443; 85025; 90471; 90686; 97150; 97165; 99285